=== PATIENT | female | born 1965 | race African-American/Black ===

== ENCOUNTER → 2017-06-30 | Outpatient (CLI) | payer OTHER ==
[~2017-06-30] MED LIST: ADIPEX-P37.5 MG PO; AMITRIPTYLINE H25 M2 PO; ASPIR 8181 MG PO; CYMBALTA60 MG PO; FIORINAL WITH1 EACH PO; FLEXERIL PO; HORMONE CREAM; HYDROXYZINE HCL25 M1 PO; LINZESS290 MCG PO; LIORESAL 10 MG10 MG PO; LYRICA 50 MG50 MG PO; NABUMETONE 750750 M1 PO; NORCO 10-325 T1 EACH PO; TOPAMAX 100 MG100 MG PO; TRAMADOL 50 MG50 MG PO; TRAZODONE HCL50 MG PO; ULTRAM 50MG TAB50 MG PO; VIT D; VOLTAREN GEL 1100 G2 TOP; WELLBUTRIN SR150 MG PO; WELLBUTRIN XL300 MG PO; ZANAFLEX4 MG PO
--- NOTE | 2017-07-20 08:31 | PAINCON ---
[address] [address] PAIN MANAGEMENT CONSULTATION Name: TORRIE MOY Room: [facility] Jose.#: [id number] Admission: 06/30/17 Attend Phys: Bernice oMy MD Discharge: Date of : 63 Report #: [id number] THIS REPORT FOR: //name// CC: Armin Moy DATE OF SERVICE: 06/30/2017 FOLLOWUP COMPLAINT: "My left knee swell up and I had to go to the Emergency Room. FOLLOWUP HISTORY: The patient is a 52-year-old female who has been followed in the pain clinic because of chronic low back pain. She suffers from lumbar radiculopathy. She has had a knee replacement on the left side. Things have been going reasonably well since that time. She noticed since we saw her last some swelling in her left knee. It became quite problematic with pain radiating down into her leg. Continues to experience some shooting pain. Notes some cramping and spasms as well. These have been somewhat problematic and keeping her awake at night. States that she continues to stretch her leg to increase its range of motion. She has been told by her physician that they may need to go in the future if it continues to be problematic in about 6 weeks and may be stretched to increase its range of motion. She feels that the infection has subsided. Overall, she is able to engage in more activities with less pain. She is still concerned about its lack of range of motion. There is no breakdown and the scar is healing well. ALLERGIES: No known drug allergies. MEDICATIONS: Wellbutrin XL 300 mg daily, Cymbalta 60 mg b.i.d., [place] 10/325 one p.o. t.i.d. 2 tablets, hydroxyzine 25 mg t.i.d., Linzess 290 mcg, Relafen 750 mg b.i.d., Lyrica 50 mg b.i.d., Zanaflex 4 mg b.i.d., Topamax 100 mg b.i.d., Desyrel 50 mg at bedtime, vitamin D 4 times weekly. PHYSICAL EXAMINATION: VITAL SIGNS: Blood pressure 124/59, heart rate 115, respiratory rate 16, room air saturation 96%, temperature 98.5, height 5 feet 5 inches, weight 245 pounds, BMI is 40. HEENT: Eyes are not icteric. Ears are unremarkable. Buccal membrane moist. The patient states that she is not having any significant sinus problems at this juncture. Flu has been much more problematic at this juncture. NECK: Without adenopathy. There are no bruits. Good range of motion. HEART: Regular rate and rhythm, normal S1, S2. LUNGS: Clear. ABDOMEN: Nontender. EXTREMITIES: Left leg shows a well healing scar from about 4 [place] [address] PAIN MANAGEMENT CONSULTATION Name: TORRIE MOY Room: [facility]#: [id number] Admission: 06/30/17 Attend Phys: Bernice Moy MD Discharge: Date of : 63 Report #: [id number] patella to 4 inches above the patella. It is slightly warm to touch. The patient complains of some shooting pain and burning sensation. Range of motion is limited to about 90 degrees while sitting in the chair for flexion. Continues to walk with a somewhat antalgic gait. IMPRESSION: 1. Left total knee replacement - infection noted and treated. Continue with physical therapy exercises to increase her range of motion. Notes some limitation in the flexion to about 90 degrees. 2. Chronic lumbar radicular pain status post failed back syndrome, history of prior surgeries. Finds that use of complex medical regimen is helpful. 3. Fibromyalgia. RECOMMENDATIONS: 1. We discussed treatment options with the patient. At this juncture, we will continue with her opioid medications of hydrocodone 10 mg one p.o. t.i.d. We would also recommend that she continue increase in the range of motion at rest with flexion on her knee to continue to stretch it and increase its range of motion. Continue physical therapy. 2. The patient has shooting pain and burning pain radiating down into her left leg. She is on trazodone as provided by her healthcare professional. We will have her hold on the trazodone for a trial of Elavil 25 mg at bedtime for a couple of days and then she will increase it as she is able to tolerate it. Hopefully, this medication will be more efficacious in decreasing the shooting pain, burning pain and discomfort that continues to plaque the patient and causes her to wake at night. A script for this medication has been written. We would like to thank you for letting us participate in her care. We hope she continues to improve. <ELECTRONICALLY SIGNED> By: Bernice Moy MD 07/20/17 0831 [id number]. Jd Moy MD /DEMAR
== END ==
LOC: M.PC 02:00
DX: M54.16 Radiculopathy, lumbar region (principal); M79.7 Fibromyalgia; Z96.652 Presence of left artificial knee joint; Z98.890 Other specified postprocedural states

== ENCOUNTER → 2017-07-28 | Outpatient (CLI) | payer OTHER ==
--- NOTE | 2017-08-24 08:24 | PAINCON ---
[address] [address] PAIN MANAGEMENT CONSULTATION Name: TORRIE MOY Room: [facility].#: [id number] Admission: 07/28/17 Attend Phys: Bernice Moy MD Discharge: Date of : 63 Report #: [id number] THIS REPORT FOR: //name// CC: Armin Moy DATE OF SERVICE: 07/28/2017 FOLLOWUP HISTORY: The patient is a 52-year-old female who has been followed in the pain clinic because of chronic pain associated with her left knee. She also has back problems and has had continued pain since the surgery. She is experiencing failed back syndrome. She finds that her medications continue to be helpful. She feels that her left knee is improving. She continues to try to increase its range of motion. She has been following up with her orthopedic surgeon. She does have osteoarthritis of her knees and also some osteoarthritic some rheumatoid arthritis in her hands. She feels that these medications continue to be helpful. She is trying to increase her level of activity. She is keeping her medications in a guarded area. She is aware that opioid medications can cause problems with tolerance as well as addiction. She does not feel like she is having any of these problems. She would like to have her medications renewed. ALLERGIES: No known drug allergies. MEDICATIONS: Reviewed Wellbutrin 300 mg daily, Cymbalta 60 mg b.i.d., [place] 10/325 p.o. t.i.d., hydroxyzine 25 mg t.i.d., Linzess 290 mcg, Relafen 750 mg b.i.d., Lyrica 50 mg b.i.d., Zanaflex 4 mg b.i.d., Topamax 100 mg b.i.d., Desyrel 50 mg at bedtime, multivitamin. PAIN ASSESSMENT: 1. The patient does have osteoarthritis and has had surgery of her knee, has rheumatoid arthritis involving her hands, has had some problem with carpal tunnel syndrome. 2. Height 5 feet 5 inches, weight 243 pounds, BMI is 40. 3. VITAL SIGNS: Blood pressure 145/94, heart rate 100, respiratory rate 16, room air saturation is 98%, temperature 97.9. 4. Pain intensity is an 8. 5. Fall risk. The patient has not fallen. She has not fallen in the last 3 months, feels that she is stable on her feet. 6. The patient is not on any blood thinners. 7. Hypertension. The patient is not being treated for hypertension. 8. Opioid therapy. The patient has undergone a drug test today on 07/28/2017. 9. The patient's functional assessment tool, patient rates a 60/70 in regards to general activity, mood, walking, ability to engage in activities of daily living, work activities, relationships with others, [place] [address] PAIN MANAGEMENT CONSULTATION Name: TORRIE MOY Room: [facility]#: [id number] Admission: 07/28/17 Attend Phys: Bernice Moy MD Discharge: Date of : 63 Report #: [id number] The patient denies use of tobacco. Denies use of alcoholic beverages. Denies use of drugs. PHYSICAL EXAMINATION: GENERAL: The patient is a well-developed female, appears stated age, oriented x 3 with mood and speech. Affect appears appropriate. HEENT: Unremarkable. Head is atraumatic. Extraocular eye muscles intact. No nasal discharge. Hearing is good. Buccal membranes are moist. The patient has not had the flu. NECK: Without adenopathy. There are no bruits. Good range of motion. HEART: Regular rate without murmurs. Normal S1, S2. LUNGS: Clear. ABDOMEN: Nontender. EXTREMITIES: Leg shows well healing scar about 4 inches above the patella and 4 inches below on the left side. The patient does complain of some increased soreness in her right knee. She feels that this might be secondary to increased use of this one as opposed to the contralateral surgerized knee. IMPRESSION: 1. Left total knee replacement. No infection is noted. The patient appears to be working hard to increase her range of motion. Continues with physical therapy exercises. 2. Chronic low back pain with lumbar radicular symptoms status post failed back syndrome. 3. Fibromyalgia. RECOMMENDATIONS: We discussed treatment options with the patient. She will continue to work hard at increase in the range of motion in her leg. She will continue with her current medications. She will call us if she has any problems with her medications. She will continue with physical therapy activities. She will note the changes in her right knee. I think that this might be secondary to using the right knee more than the left. Hopefully, this starts to calm down. She will continue with her current medical regimen. She will call us if she has any problems. We would like to thank you for letting us participate in her care. We hope she continues to improve. <ELECTRONICALLY SIGNED> By: Bernice Moy MD 08/24/17 0824 1010 [id number]. Jd Moy MD /nt
== END ==
LOC: M.PC 01:51
DX: M54.16 Radiculopathy, lumbar region (principal); M79.7 Fibromyalgia; Z96.652 Presence of left artificial knee joint

== ENCOUNTER → 2017-08-25 | Outpatient (CLI) | payer OTHER ==
--- NOTE | 2017-08-31 14:44 | PAINCON ---
[address] [address] PAIN MANAGEMENT CONSULTATION Name: TORRIE MOY Room: [facility] Andrea.Anthony.#: [id number] Admission: 08/25/17 Attend Phys: Bernice Moy MD Discharge: Date of : 63 Report #: [id number] THIS REPORT FOR: //name// CC: Armin Moy DATE OF SERVICE: 08/25/2017 FOLLOWUP HISTORY: Here for medication renewal. FOLLOWUP COMPLAINT: The patient is a 52-year-old female who has been followed in the pain clinic. As you recall, she suffers from pain involving her left knee at this juncture. She has had a total knee replacement. She continues to work toward rehabilitating this limb. She also has some problems with lumbar radicular pain. She has had back surgery. She finds that use of her current medications, Cymbalta, hydrocodone, tizanidine and amitriptyline are beneficial. She states that she had been working pretty hard to improve her level of flexibility involving her left leg. Because of the increased pain and physical therapy she was undergoing, she took more of her pain medications earlier during the month. As a result, she ran out about a week prior to her last visit. At the last visit, she was given a drug test, which did not show hydrocodone in her system. She states that she is not diverting any of her medication. She has only been taking the medication as prescribed. Because of the increased activity and worsening of her pain, she took her medication and ran out about a week early. States that this reveals the reason for her failing to have hydrocodone in her saliva at the last visit. Overall, she feels that her level of activity continues to improve. She is still having some pain and discomfort because of the cold temperatures with walking, sitting, standing as well as lifting and bending. Feels that stretching and rest are helpful in controlling the pain as well. She also has a history of migraines and found that they have been more frequent at this since we saw her last. With this course, her pain overall is a 7/10. ALLERGIES: No known drug allergies. MEDICATIONS: Review of current medication include Wellbutrin 300 mg daily, Cymbalta 60 mg b.i.d., [place] 10/325 p.o. t.i.d., hydroxyzine 25 mg p.o. t.i.d., Linzess 290 mcg, Relafen 750 mg b.i.d., Lyrica 50 mg b.i.d., Zanaflex 4 mg b.i.d., Topamax 100 mg b.i.d., Desyrel 50 mg at bedtime, multivitamins. PAIN ASSESSMENT: 1. The patient has osteoarthritis and has had surgery on her knee as well as some rheumatoid arthritis involving her hands. She has had problems with carpal tunnel syndrome. 2. Height 5 feet 5 inches, weight 252 pounds, BMI is 42. [place] [address] PAIN MANAGEMENT CONSULTATION Name: TORRIE MOY Room: [facility]#: [id number] Admission: 08/25/17 Attend Phys: Bernice Moy MD Discharge: Date of : 63 Report #: [id number] 3. VITAL SIGNS: Blood pressure is 93/67, heart rate is 104, respiratory rate 16, room air saturation 99, temperature 97.7. 4. Pain intensity rated as 7/10. 5. Fall risk. The patient has not fallen since we saw her last, and has not fallen in the last 3 months. 6. The patient is not on blood thinners. 7. Hypertension. The patient is not being treated for hypertension. 8. Opioid therapy. The patient has undergone a drug test. She states that she took her medications more at the beginning of last month as a result, she ran out a week in advance. This would be the reason for lack of hydrocodone and her drug test. 9. Functional assessment tool: The patient rates 60/70 in regards to general activity, mood, walking, ability to engage in activities of daily living, work activities, relationships with others, sleep and enjoyment of life. 10. The patient denies use of tobacco. The patient denies alcoholic beverages. The patient denies use of drugs and illicit drugs. PHYSICAL EXAMINATION: GENERAL: The patient is a well-developed female. She appears her stated age. She is alert and oriented x 3. Her speech is smooth. Affect appears appropriate. HEENT: Unremarkable. Head is atraumatic. Extraocular muscles intact. No nasal discharge or complaint. Hearing is normal. Buccal membranes are moist, the patient has not had a flu. NECK: Without adenopathy, there are no bruits, good range of motion. HEART: Regular rate without murmurs. Normal S1, S2. LUNGS: Clear to auscultation. ABDOMEN: Nontender. EXTREMITIES: Left leg shows some healing of the scar about 4 inches above the patella and 4 inches below on the left. The patient complains of some warmth in this area. She is wearing a compression stocking at this juncture. Notes some increased swelling and some increased soreness with range of motion in her left knee. IMPRESSION: 1. Left total knee replacement. 2. The patient continues to work hard on increasing range of motion in physical therapy. Used her hydrocodone medication in the first 3 weeks after last visit. 3. Chronic low back pain with lumbar radicular symptoms status post failed back syndrome. 4. Fibromyalgia. RECOMMENDATIONS: We discussed treatment options with the patient. We explained to her the need to take her medications as prescribed. Again, it could be misconstrue that her medications might be diverted if she does not have this in her system. She states that she will take her medications [place] [address] PAIN MANAGEMENT CONSULTATION Name: TORRIE MOY [facility] [id number] Admission: 08/25/17 Attend Phys: Bernice Moy MD Discharge: Date of : 63 Report #: [id number] was not aware that this would be deemed problematic if she took her medications earlier to help increase her range of motion. She continues with physical therapy. She will continue to monitor her left knee. She notes that there is some slight swelling there. Feels that the compression garment is helpful. She will call us if she has any concerns. We will rewrite her medications for amitriptyline, Cymbalta, tizanidine, and hydrocodone. We would like to thank you for letting us participate in her care. We hope she continues to improve. <ELECTRONICALLY SIGNED> By: Bernice Moy MD 08/31/17 1444 [id number]. Jd Moy MD /[facility]
== END ==
LOC: M.PC 01:33
DX: M54.16 Radiculopathy, lumbar region (principal); G89.29 Other chronic pain; Z96.652 Presence of left artificial knee joint

== ENCOUNTER → 2017-09-22 | Outpatient (CLI) | payer OTHER ==
--- NOTE | 2017-10-11 08:16 | PAINCON ---
[address] [address] PAIN MANAGEMENT CONSULTATION Name: TORRIE MOY Room: [facility] Jose.#: [id number] Admission: 09/22/17 Attend Phys: Bernice Moy MD Discharge: Date of : 63 Report #: [id number] THIS REPORT FOR: //name// CC: Armin Moy DATE OF SERVICE: 10/04/2017 FOLLOWUP COMPLAINT: Things are going relatively well. FOLLOWUP HISTORY: The patient is a 52-year-old black female who has been followed in the pain clinic. As you recall, she has a history of left knee replacement. She also has history of failed back syndrome with chronic lumbar radicular pain. She has been treated with opioid medications. She finds that her current medications, use of hydrocodone, tizanidine, Elavil and Cymbalta are helpful. She rates her pain as a 7-8 today. The weather has changed and she has noted some worsening in pain and discomfort. Also, has some pain and discomfort in the low back area. She notes that activities such as walking, sitting, and standing, climbing stairs, lifting and bending are problematic. Pain improves with use of her medication, rest as well as with stretching. She has had no complication from her medications in the last month. She finds that overall things are going reasonably well and would like to continue their use. ALLERGIES: No known drug allergies. MEDICATIONS: Wellbutrin 300 mg daily, Cymbalta 60 mg b.i.d., [place] 10/325 one p.o. t.i.d., hydroxyzine 25 mg p.o. t.i.d., Linzess 290 mg, Relafen 750 mg b.i.d., Lyrica 50 mg b.i.d., Zanaflex 4 mg b.i.d., Topamax 100 mg b.i.d., Desyrel 50 mg at bedtime, multivitamins. PAIN ASSESSMENT TOOL; 1. The patient does have osteoarthritis, has had surgery on her knee, on the left side as well with rheumatoid arthritis involving her hands. Does have some problems with carpal tunnel syndrome. 2. Height 5 feet 5 inches, weight 261 pounds, BMI is 42. 3. Vital signs: Blood pressure is 139/80, heart rate 102, respiratory rate 16, room air saturation 98%, temperature 98.3. 4. Pain intensity judged to be 7-8/10. 5. Fall risk. The patient has not fallen in the last 3 months. 6. Blood thinner. The patient is not on a blood thinner. 7. Hypertension. The patient is not being treated for hypertension. 8. Opioid therapy. The patient is receiving opioid therapy from the pain clinic on a regular basis. 9. Functional assessment tool. The patient rates her pain as a 60-70, which shows some significant problems with activities of daily living secondary to [facility] [address] [place] [address] PAIN MANAGEMENT CONSULTATION Name: TORRIE MOY Room: [facility] Linda#: [id number] Admission: 09/22/17 Attend Phys: Bernice Moy MD Discharge: Date of : 63 Report #: [id number] pain. 10. The patient denies tobacco use. 11. The patient denies use of illicit drugs. 12. The patient denies use of alcoholic beverages. PHYSICAL EXAMINATION: GENERAL: The patient is a well-developed black female. She appears her stated age. She is alert and oriented x 3. Her speech is smooth. Affect appears appropriate. HEAD, EYES, EARS, NOSE, AND THROAT: Unremarkable. Head is atraumatic. Extraocular eye muscles intact. Nasal mucosa moist. Hearing within normal limits. Sclerae nonicteric. NECK: Without adenopathy or bruits with good range of motion. HEART: Regular rate without murmur with normal S1, S2. LUNGS: Clear to auscultation. ABDOMEN: Nontender. EXTREMITIES: Left leg shows continued healing of the scar at approximately 4 inches above the patella and below the patella on the left. The patient does have some soreness in this area. No evidence of infections. Reasonably good range of motion. IMPRESSION: 1. Left total knee replacement. 2. Continue lumbar radicular pain status post failed back syndrome. 3. Fibromyalgia. RECOMMENDATIONS: We discussed treatment options with the patient. We will continue with her current medications. A script for her medications has been written. Possible complications of opioid use again were reviewed. They include tolerance as well as dependence. The patient is aware of this. She continues to take her medication as prescribed. She feels that she is able to participate in activities of daily living, much better with use of these medications than without them. Keeps her medications in a guarded area. We would like to thank you for letting us to participate in her care. We hope she continues to improve. <ELECTRONICALLY SIGNED> By: Bernice Moy MD 10/11/17 0816 [id number]. Jd Moy MD /[facility]
== END ==
LOC: M.PC 01:56
DX: M54.5 Low back pain (principal); M79.7 Fibromyalgia; Z96.652 Presence of left artificial knee joint

== ENCOUNTER → 2017-10-20 | Outpatient (CLI) | payer OTHER ==
--- NOTE | 2017-10-28 09:09 | PAINCON ---
[address] [address] PAIN MANAGEMENT CONSULTATION Name: TORRIE MOY [facility] [id number] Admission: 10/20/17 Attend Phys: Bernice Moy MD Discharge: Date of : 63 Report #: [id number] THIS REPORT FOR: //name// CC: Armin Moy DATE OF SERVICE: 10/20/2017 CHIEF COMPLAINT: Chronic low back pain and knee pain. FOLLOWUP HISTORY: The patient is a 52-year-old black female, who has been followed in the pain clinic because of chronic pain involving her low back, as well as her left knee. 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 She continues to have chronic pain as a result of this with some radicular component down into her leg. She has had a knee replacement on the left. Overall, things are going reasonably well. She does have some waxing and waning of pain. When the weather changes, she has noticed worsening of her pain and discomfort. Today, weather has been changing. There has been threats of tornadic activity. She has noted some worsening of pain and discomfort in her left knee. Overall, things are going reasonably well. Notes that she is somewhat limited in her ability to stand, climbs stairs, lift, bend, and do other activities of daily living. She notes that the medications continue to be helpful. She continues to work for stretching and improving her range of motion. She remains active. She states that she keeps her medications in a well-controlled environment. She has some young children that stay with her. Feels that her medications continue to be beneficial and would like to continue their use. She is aware of the conversations in the media regarding use of opioid medications and their side effects, which could be addiction as well as problems with opioids with decreasing efficacy secondary to development of tolerance. She would like to have her medications renewed. ALLERGIES: No known drug allergies. MEDICATIONS: Wellbutrin 300 mg daily, Cymbalta 60 mg b.i.d., [place] 10/325 one p.o. t.i.d., hydroxyzine 25 mg p.o. t.i.d., Linzess 290 mg, Relafen 750 mg b.i.d., Lyrica 50 mg b.i.d., Zanaflex 4 mg b.i.d., Topamax 100 mg b.i.d., Desyrel 50 mg at bedtime, and multivitamins. PAIN ASSESSMENT TOOL: 1. The patient does have history of osteoarthritis and has had left knee replacement and some problems with her contralateral knee. Has had carpal tunnel syndrome. 2. Height 5 feet 5 inches, weight 263 pounds, BMI 42. 3. Vital Signs: Blood pressure 143/77, heart rate 84, respiratory rate 16, room air saturation 97%, temperature 98.4. [place] [address] PAIN MANAGEMENT CONSULTATION Name: TORRIE MOY [facility] [id number] Admission: 10/20/17 Attend Phys: Bernice Moy MD Discharge: Date of : 63 Report #: [id number] 4. Pain intensity scale, judged to be 7/10 at this juncture. 5. Fall risk: The patient has not fallen in the last 3 months. 6. Blood thinner: The patient is not on the blood thinner. 7. Hypertension: The patient is not being treated for hypertension. 8. Opioid therapy: The patient is receiving opioid therapy for chronic pain through her pain clinic and gets her medication from one source. 9. Functional assessment tool: The patient rates her pain 60/70, which includes significant problems with activities of daily living secondary to the pain. 10. The patient denies use of tobacco use. 11. The patient denies illicit drug use. 12. The patient denies use of alcoholic beverages. PHYSICAL EXAMINATION: GENERAL: The patient is a well-developed black female. She appears her stated age. She is alert and oriented x 3. Her speech is smooth. Her appearance is appropriate. HEENT: Normocephalic, atraumatic. Extraocular eye muscles intact. Sclerae nonicteric. Hearing is within normal limits. Mucous membranes are moist. Neck with good range of motion. No JVD or bruits. HEART: Regular rate without murmur. Normal S1, S2. LUNGS: Clear to auscultation without rhonchi or rales. ABDOMEN: Protuberant. EXTREMITIES: Upper extremity strength 5/5 for the major muscle groups with normal sensitivity. Lower extremity, the patient has some pain and discomfort in the left patellar area. There is no evidence of infection. Well healed scar. Some soreness in this area. Improving range of motion. IMPRESSION: 1. Left total knee replacement. 2. Continued lumbar radicular pain secondary to failed back syndrome. 3. Fibromyalgia. RECOMMENDATIONS: We discussed treatment options with the patient. At this juncture, we will continue with her current medications. She feels that the medications are helpful. She states that she is keeping her medications in a controlled environment. Has no problems with mentation. Continues to increase her level of activity as tolerated. We will keep her medications in a guarded area given that she has some young children/grandchildren in her home. We would like to thank you for letting us participate in her care. We hope she continues to improve. <ELECTRONICALLY SIGNED> By: Bernice Moy MD 10/28/17 0909 1246 [id number]. Jd Moy MD /PMT
== END ==
LOC: M.PC 02:26
DX: M54.16 Radiculopathy, lumbar region (principal); M79.7 Fibromyalgia; Z96.652 Presence of left artificial knee joint

== ENCOUNTER → 2017-11-17 | Outpatient (CLI) | payer OTHER ==
--- NOTE | 2017-11-30 13:59 | PAINCON ---
[address] [address] PAIN MANAGEMENT CONSULTATION Name: TORRIE MOY Room: [facility] GarciaKevin#: [id number] Admission: 11/17/17 Attend Phys: Bernice Moy MD Discharge: Date of : 63 Report #: [id number] THIS REPORT FOR: //name// CC: Armin Moy DATE OF SERVICE: 11/17/2017 FOLLOWUP COMPLAINT: Here for medication renewal. FOLLOWUP HISTORY: The patient is a 52-year-old black female who has been followed in the pain clinic because of chronic pain involving her low back. She has had back surgery and continues to suffer from failed back syndrome. Has had knee problems. Has had her left knee replaced. She feels that her medications are helpful. They enable her to engage in activities of daily living. She finds that she would be much less active without them. She feels that they are working well. She is not having any mental difficulties and has a clear sensorium with their use. No bowel or bladder dysfunction. Overall, things are going reasonably well and she would like to continue her medications. She went on vacation and found the medications were efficacious. Notes that the pain still exists when standing, bending, sitting, walking, changes in activities going from a sitting to a standing as well as some bending position. Left knee continues to heal well. She continues to range its motion. Keeps her medications in a confined area given that she has her granddaughter and young children around. She has returned for renewal of her medications. ALLERGIES: No known drug allergies. MEDICATIONS: Wellbutrin 300 mg daily, Cymbalta 60 mg b.i.d., [place] 10/325 one p.o. t.i.d., hydroxyzine 25 mg p.o. t.i.d., Linzess 290 mg, Relafen 750 mg b.i.d., Lyrica 50 mg b.i.d., Zanaflex 4 mg b.i.d., Topamax 100 mg b.i.d., Desyrel 50 mg at bedtime, and multivitamins. PAIN CLINIC ASSESSMENT: 1. The patient does have osteoarthritis in her left knee and has had some carpal tunnel problems as well. 2. Height 5 feet 5 inches, weight 268 pounds, BMI is 44. 3. VITAL SIGNS: Blood pressure 153/93, heart rate 86, respiratory rate 16, room air saturation 96%, and temperature 98.3. 4. Pain score 8.5/10. 5. Fall risk. The patient has not fallen in the last 3 months. 6. Blood thinner. The patient is not on a blood thinning medication. 7. Hypertension. The patient is not being treated for hypertension. 8. Opioid therapy. The patient is receiving opioid therapy from the pain clinic and gets it from one source. 9. Functional tool assessment. The patient rates her pain as a 60/70, which [facility] [address] [place] [address] PAIN MANAGEMENT CONSULTATION Name: TORRIE MOY [facility] [id number] Admission: 11/17/17 Attend Phys: Bernice Moy MD Discharge: Date of : 63 Report #: [id number] indicates significant problems with activities of daily living secondary to the pain. 10. Tobacco: The patient denies use of tobacco. 11. Illicit drugs. The patient denies use of illicit drugs. 12. Alcohol: The patient denies use of alcoholic beverages. PHYSICAL EXAMINATION: GENERAL: The patient is a well-developed, well-nourished black female. Slightly overweight. She appears her stated age. She is alert and oriented x 3. Her speech is smooth/fluent/lucid. Her appearance is appropriate. HEENT: Normocephalic, atraumatic. Extraocular eye muscles are intact. Sclerae nonicteric. Hearing is within normal limits. Mucous membranes are moist. NECK: With good range of motion without JVD or bruits. HEART: Regular rate without murmur. Normal S1, S2. LUNGS: Clear to auscultation without rhonchi or rales. ABDOMEN: Protuberant. EXTREMITIES: No sensory changes in the upper extremity, upper group and judged to be 5/5. Lower extremity, the patient continues to have some pain and discomfort in the left patellar area. It is healing well. No evidence of infection. The patient does have some pain and discomfort in the lower portion of her back down into the lumbar region secondary to failed back syndrome. IMPRESSION: 1. Left knee replacement, continues to improve. 2. Lumbar radicular pain secondary to failed back syndrome. 3. Fibromyalgia. RECOMMENDATIONS: We discussed treatment options with the patient. Risks and benefits of an epidural steroid injection were again reviewed. Possible complication of the procedure were discussed. The patient elects to continue with her medications. Her is present. States that she is having problems with his back and may consider being seen in the pain clinic as well. A script for her medications has been provided, which include tizanidine 4 mg b.i.d., hydrocodone 10/325 one p.o. t.i.d., pregabalin/Lyrica 100 mg b.i.d. She will follow up in the future as needed. <ELECTRONICALLY SIGNED> By: Bernice Moy MD 11/30/17 1359 [id number] [id number]. Jd Moy MD /nt
== END ==
LOC: M.PC 00:51
DX: M54.5 Low back pain (principal); G89.29 Other chronic pain; M79.7 Fibromyalgia; Z96.652 Presence of left artificial knee joint

== ENCOUNTER → 2017-12-15 | Outpatient (CLI) | payer OTHER ==
[~2017-12-15] MED LIST changes: +SAVELLA50 MG PO
--- NOTE | 2017-12-22 08:42 | PAINCON ---
[address] [address] PAIN MANAGEMENT CONSULTATION Name: TORRIE MOY Room: [facility] Jose.#: [id number] Admission: 12/15/17 Attend Phys: Bernice Moy MD Discharge: Date of : 63 Report #: [id number] THIS REPORT FOR: //name// CC: Armin Moy DATE OF SERVICE: 12/15/2017 FOLLOWUP COMPLAINT: Continued bilateral knee pain as well as some low back pain. FOLLOWUP HISTORY: The patient is a 52-year-old female who has been followed in the Pain Clinic because of chronic pain. As you recall, she has chronic back pain and suffered from failed back syndrome. She also has pain and discomfort involving her knees. She has had the left knee replaced. She has noted some increased soreness in the right knee. She recently had a procedure in the dentist's office. Two teeth were removed. The patient developed "a dry socket." She notes that the pain was significantly intense. She was given 7 hydrocodone 5/325 by her surgeon. Overall, she feels that this has been "a bad week." Rates her pain as a 10/10. Has had difficulty getting in and out of bed this week. Notes worsening of her pain with activities. Notes change in the temperature which has been about 100, walking, sitting, standing, changing positions, lifting and bending have been problematic. ALLERGIES: No known drug allergies. CURRENT MEDICATIONS: Wellbutrin 300 mg daily, Cymbalta 60 mg b.i.d., [place] 10 mg 1 p.o. t.i.d., hydroxyzine 25 mg p.o. t.i.d., Linzess 290 mg, Relafen 750 mg b.i.d., Lyrica 50 mg b.i.d., Zanaflex 4 mg b.i.d., Topamax 100 mg b.i.d., Desyrel 50 mg at bedtime, and multivitamins. PAIN CLINIC ASSESSMENT: 1. The patient does have osteoarthritis involving her left knee. Has some carpal tunnel problems, has had back surgery. 2. Vital signs: Height 5 feet 5 inches, weight 255 pounds, BMI is 44. Blood pressure 148/100, heart rate 113, respiratory rate 18, room air saturation 97%, temperature 98.5. 3. Pain score 10/10. 4. Fall risk. The patient has not fallen in the last 3 months. 5. Blood thinner. The patient is not on a blood thinning medication. 6. Hypertension. The patient is not being treated for hypertension. 7. Opioid therapy. The patient is receiving opioid therapy from 1 source of functional assessment tool. The patient rates her pain as a 60 out of 70, which shows significant problems with activities of daily living because of the pain. 8. Tobacco: The patient denies use of tobacco. 9. Illicit drug use. The patient denies [place] [address] PAIN MANAGEMENT CONSULTATION Name: TORRIE MOY Room: [facility] Linda#: [id number] Admission: 12/15/17 Attend Phys: Bernice Moy MD Discharge: Date of : 63 Report #: [id number] 10. Alcohol: The patient denies use of alcoholic beverages. PHYSICAL EXAMINATION: GENERAL: The patient is a well-developed black female. She appears her stated age. She is slightly overweight. She appears to be in some increased pain as opposed to other previous visits. She is walking very slow. Her is with her. HEENT: Normocephalic, atraumatic. Extraocular eye muscles intact. Sclerae nonicteric. Hearing is within normal limits. Mucous membranes are moist. NECK: With good range of motion without JVD or bruits. HEART: Regular rate without murmurs. S1, S2. LUNGS: Clear to auscultation without rhonchi or rales. ABDOMEN: Protuberant. EXTREMITIES: Without significant scoliosis, kyphosis or lordosis. Upper extremity muscle strength is judged to be 5/5. Lower extremity muscle strength is judged to be 4+ in the lower extremities. The patient complains of pain and discomfort in her right knee. There is slight swelling. Light palpation in the area of the patella is sore. There is no significant redness. Difficult to assess given the patient's skin complexion. The left knee is well healed. It is relatively cool to touch. Right knee is relatively cool to touch. IMPRESSION: 1. Left knee replacement continues to improve. 2. Right knee pain and discomfort with some perception of swelling and increased discomfort to touch. It does not seem to be infected, but it is sore. 3. History of lumbar radicular pain secondary to failed back syndrome. 4. Fibromyalgia. RECOMMENDATIONS: We discussed treatment options with the patient. We will continue with her current medical regimen. The patient has been given a script for Voltaren to rub over the affected knee. Hopefully, she will find that this is helpful and helps to calm down the pain and discomfort. She will continue with her current medications of hydrocodone. She will continue with Zanaflex, Lyrica and amitriptyline. We would like to thank you for letting us participate in her care. A script for the above-mentioned medications were renewed. <ELECTRONICALLY SIGNED> By: Bernice Moy MD 12/22/17 0842 1501 [id number]. Jd Moy MD /nt
== END ==
LOC: M.PC 03:26
DX: M25.561 Pain in right knee (principal); M79.7 Fibromyalgia; G89.4 Chronic pain syndrome; Z96.652 Presence of left artificial knee joint

== ENCOUNTER → 2018-01-26 | Outpatient (CLI) | payer OTHER ==
--- NOTE | 2018-02-03 08:37 | PAINCON ---
[address] [address] PAIN MANAGEMENT CONSULTATION Name: TORRIE MOY Room: [facility] AndreaAnthony.#: [id number] Admission: 01/26/18 Attend Phys: Bernice Moy MD Discharge: Date of : 63 Report #: [id number] THIS REPORT FOR: //name// CC: Armin Moy DATE OF SERVICE: 01/26/2018 FOLLOWUP COMPLAINT: Here for medications. Still having pain in both knees and in the low back. FOLLOWUP HISTORY: The patient is a 52-year-old female who has been followed in the pain clinic. As you recall, she has significant problems with her back. She suffers from failed back syndrome. She has been treated with complex medical regimen using opioid medication because of chronic pain. Also, she is having some pain and discomfort with her knees. She has had a left knee replacement. She has noted some increased soreness in the right knee. She generally has some global pain today. She is experiencing some increased swelling in her knees. Notes that her fibromyalgia pain is problematic. She is being seen by her turret punch press operator next week. She notes that there is some swelling down in her ankle and the knee on the right side. She is walking with a cane and has some pain, which she rates as a 10/10 today. Feels that her medications are helpful in spite of all of this discomfort. We would like to continue them. Notes that pain is worse with change in temperature, increase activity, walking, sitting, standing, going from a sitting to a standing, bending and lifting. She has had no complications with her medications. Keeps her medications in a guarded area. ALLERGIES: No known drug allergies. MEDICATIONS: Wellbutrin 300 mg daily, Cymbalta 60 mg b.i.d., [place] 10 mg 1 p.o. t.i.d., hydroxyzine 25 mg t.i.d., Linzess 290 mg, Relafen 750 mg b.i.d., Lyrica 50 mg b.i.d., Zanaflex 4 mg b.i.d., Topamax 100 mg b.i.d., Desyrel 50 mg at bedtime and multiple vitamins. PAIN CLINIC ASSESSMENT: 1. The patient does have osteoarthritis involving her knees. Has had some problems with her hands with carpal tunnel as well as had back surgery. 2. Vital Signs: Blood pressure is 155/93, heart rate is 88, respiratory rate 18, room air saturation 96%, temperature 98.2. Pain score 10/10. 3. Fall risk. The patient has not fallen in the last 3 months. She does walk with a cane. 4. Blood thinner. The patient is not on a blood thinning medication. 5. Hypertension. The patient has not been treated for hypertension. 6. Opioid therapy. The patient is receiving opioid [place] [address] PAIN MANAGEMENT CONSULTATION Name: TORRIE MOY Room: [facility]#: [id number] Admission: 01/26/18 Attend Phys: Bernice Moy MD Discharge: Date of : 63 Report #: [id number] clinic. 7. Tobacco: The patient denies use of tobacco. 8. Illicit drugs. The patient denies use of illicit drugs. 9. Alcohol: The patient denies use of alcoholic beverages. PHYSICAL EXAMINATION: GENERAL: The patient is a well-developed black female. She appears her stated age. She is alert and oriented x 3. Does have some increased pain and complains in the area of her knees and right ankle. Continues to move slowly. Her and her granddaughter are with her. HEENT: Normocephalic, atraumatic. Extraocular eye muscles intact. Sclerae nonicteric. Hearing is within normal limits. Mucous membranes are moist. NECK: Good range of motion without JVD or bruits. HEART: Regular rate without murmurs. S1, S2. LUNGS: Clear to auscultation without rhonchi or rales. ABDOMEN: Protuberant, nontender. EXTREMITIES: Without significant scoliosis, kyphosis, or lordosis. Upper extremity muscle strength is judged to be 5/5 with symmetry without sensory changes. Low back area, well-healed scar in the low back area. Has pain and discomfort, which is radiating down into her legs. She has pain and discomfort in the left knee as well as in the right knee, right more problematic with swelling down into the ankle. Left knee is well healed without evidence of infection. IMPRESSION: 1. Left knee replacement, continues to improve. 2. Right knee discomfort with some swelling as well as some increased discomfort down into the ankle on the affected side. 3. History of lumbar radicular pain, status post failed back syndrome. 4. Fibromyalgia. RECOMMENDATIONS: We discussed treatment options with the patient. We will continue with her current medications. She states that she is following up with her turret punch press operator. Hopefully, she will notice some improvement in the swelling in her right knee as well as in her ankle. She feels that her medications are helpful. We will continue with their use. We have discussed the problems with opioid medications, which could include addiction as well as decreased efficacy secondary to intolerance. Overall, she feels that the medications are helpful, we will rewrite her medications for hydrocodone, Voltaren gel, amitriptyline and Lyrica. These medications have been rewritten and the patient will follow up in the near future. <ELECTRONICALLY SIGNED> By: Bernice Moy MD 02/03/18 0837 1222 1530N. Jd Moy MD /nt
== END ==
LOC: M.PC 03:26
DX: M54.5 Low back pain (principal); M25.561 Pain in right knee; M25.562 Pain in left knee; M79.7 Fibromyalgia; Z79.899 Other long term (current) drug therapy; Z96.652 Presence of left artificial knee joint

== ENCOUNTER → 2018-02-23 | Outpatient (CLI) | payer OTHER ==
--- NOTE | 2018-02-24 17:38 | PAINCON ---
[address] [address] PAIN MANAGEMENT CONSULTATION Name: TORRIE MOY Room: [facility] Jose.#: [id number] Admission: 02/23/18 Attend Phys: Bernice Moy MD Discharge: Date of : 63 Report #: [id number] THIS REPORT FOR: //name// CC: Armin Moy DATE OF SERVICE: 02/23/2018 CHIEF COMPLAINT: Right knee pain, continued left knee pain, back pain. HISTORY OF PRESENT ILLNESS: The patient is a 52-year-old black female. She has been followed in the pain clinic in the past because of chronic pain involving her back. 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 She also has pain and discomfort as a result of knee pain. As you recall, she has had the left knee replaced. She still is doing reasonably well, but still has some problems with the left knee. She is having more problems with her right knee. Has recently undergone an injection in the right knee. Still finds that things are still painful. Has been walking and continues to walk with a cane because of the pain and discomfort associated with the osteoarthritic changes in her knees. She feels that things are going reasonably well. Rates her pain as a 7-8/10. Finds her hydrocodone is beneficial and has returned today for renewal of her medications. Activities of daily living such as walking, walking stairs, sitting, standing, lifting, bending are still quite problematic. She is becoming less mobile as time has progressed. ALLERGIES: No known drug allergies. CURRENT MEDICATIONS: Wellbutrin 300 mg daily, Cymbalta 60 mg b.i.d., [place] 10 mg t.i.d., hydroxyzine 25 mg t.i.d., Linzess 290 mcg, Relafen 750 mg b.i.d., Lyrica 50 mg b.i.d., Zanaflex 4 mg, Topamax 100 mg b.i.d., Desyrel 50 mg at bedtime, and multivitamins. PAIN CLINIC ASSESSMENT: 1. The patient does have osteoarthritis involving her left knee. Has some signs in the right knee. She has had back surgery. 2. Height 5 feet 5 inches, weight 279 pounds, BMI is 46.9. 3. Vital signs: Blood pressure 149/88, heart rate is 102, respiratory rate 16, room air saturation 99%, temperature 98.3. 4. Pain intensity 7/10. 5. Fall risk. The patient has not fallen in the last 3 months. 6. Blood thinner. The patient is not on a blood thinning medication. 7. Hypertension. The patient is not being treated for hypertension. 8. Opiate therapy. The patient is receiving her medications from the pain clinic. 9. Tobacco: The patient denies use of tobacco. 10. Illicit drugs. The patient denies [place] [address] PAIN MANAGEMENT CONSULTATION Name: TORRIE MOY Room: [facility]#: [id number] Admission: 02/23/18 Attend Phys: Bernice Moy MD Discharge: Date of : 63 Report #: [id number] 11. Alcohol: The patient denies use of alcoholic beverages. PHYSICAL EXAMINATION: GENERAL: The patient is a well-developed black female, appears her stated age. She is alert and oriented x 3. Slightly overweight. Appears relax. HEENT: Normocephalic, atraumatic. Extraocular eye muscles intact. Sclerae nonicteric. Hearing is within normal limits. Mucous membranes are moist. NECK: With good range of motion without JVD or bruits. HEART: Regular rate without murmurs. S1, S2. LUNGS: Clear to auscultation without rhonchi or rales. ABDOMEN: Protuberant, nontender. EXTREMITIES: Without significant swelling in the ankles or hands. MUSCULOSKELETAL: Without scoliosis, kyphosis or lordosis. Upper muscle strength is judged to be 5/5 for the major muscle groups. Muscle strength is judged to be 4+ in the left and right lower extremities. The patient gives way secondary to the pain. Has pain and discomfort in the right knee. Has pain and discomfort in the left knee. Feels and perceives swelling on the medial aspects of her knees bilaterally. No evidence of redness or infection involving the left knee, well healed. IMPRESSION: 1. Left and right knee pain. Left knee is improving, status post arthroplasty, right knee with continued pain status post injection recently, but continues to be somewhat problematic. 2. History of lumbar radicular pain secondary to failed back syndrome. 3. Fibromyalgia. RECOMMENDATIONS: We discussed treatment options with the patient. Risks and benefits of her medications were discussed. Overall, things are going reasonably well. She continues to ambulate as much as possible. Feels that her medications are helpful. She is not having any complications from the medications. We had conversations regarding use of opioid medications, their benefits and risks. Risks include possibility of addiction as well as possibility of ____ effectiveness over a period of time secondary to tolerance. Overall, she feels that things are going reasonably well. She would like to continue with her medication. Continues to walk with use of a cane. Finds that her medications enable her to stay reasonably active in her daily life. <ELECTRONICALLY SIGNED> By: Bernice Moy MD 02/24/18 1738 [id number]. Jd Moy MD /nt
== END ==
LOC: M.PC 04:38
DX: M54.16 Radiculopathy, lumbar region (principal); M25.561 Pain in right knee; M25.562 Pain in left knee; M79.7 Fibromyalgia; Z79.899 Other long term (current) drug therapy

== ENCOUNTER → 2018-03-23 | Outpatient (CLI) | payer OTHER ==
[~2018-03-23] MED LIST changes: -SAVELLA50 MG PO
--- NOTE | 2018-05-03 15:49 | PAINCON ---
[address] [address] PAIN MANAGEMENT CONSULTATION Name: TORRIE MOY Room: [facility] AndreaKevinAnthony.#: [id number] Admission: 03/23/18 Attend Phys: Bernice Moy MD Discharge: Date of : 63 Report #: [id number] THIS REPORT FOR: //name// CC: Armin Moy DATE OF SERVICE: 03/23/2018 CHIEF COMPLAINT: Knee and back pain have worsened since the weather change. FOLLOWUP HISTORY: The patient is a 52-year-old black female. She is followed in the pain clinic because of chronic pain. As you recall, she has had her knee replaced on the left side. She continues to have pain and discomfort as a result of that. She also has had back surgery and suffers from chronic pain secondary to failed back syndrome. She feels that her medications are helpful at this juncture. She has returned today for renewal of her medication. She has been having more pain in her right knee. She has undergone an injection in the knee. She has been walking with a cane. She rates her pain as an 8/10 at this juncture. She feels that her hydrocodone, tizanidine, Voltaren, and Lyrica are helpful. Notes that the pain is exacerbated with activities such as walking, sitting, standing, going from a sitting to a standing position as well as lifting and bending. She feels that her medications afford her ability to engage in activities which she would not be able to without them. Feels that the pain is about 25% improved with use of her medications. ALLERGIES: No known drug allergies. CURRENT MEDICATIONS: Wellbutrin 300 mg daily, Cymbalta 60 mg b.i.d., [place] 10 mg t.i.d., hydroxyzine 25 mg t.i.d., Linzess 290 mcg, Relafen 750 mg b.i.d., Lyrica 50 mg b.i.d., Zanaflex 4 mg, Topamax 100 mg b.i.d., Desyrel 50 mg at bedtime, and multivitamin. PAIN CLINIC ASSESSMENT/PQRS: 1. The patient does suffer from osteoarthritis involving her left knee and some problem with her right knee. She is not being treated for rheumatoid arthritis. 2. Height 5 feet 5 inches, weight 279 pounds, BMI is 46.3. 3. Vital signs, blood pressure 160/103, heart rate 99, respiratory rate 16, room air saturation 100%, temperature 98.3. Pain intensity score is 8/10. 4. Fall risk. The patient has not fallen in the last 3 months. 5. Blood thinner. The patient is not on a blood thinning medication. 6. Hypertension. The patient is not being treated for hypertension. 7. Opioid therapy. The patient receives her medications from one source, the pain clinic. 8. Tobacco: The patient denies use of tobacco. 9. Illicit drugs. The patient denies use of illicit drugs. 10. Alcohol: The patient denies [place] [address] PAIN MANAGEMENT CONSULTATION Name: TORRIE MOY Room: [facility]#: [id number] Admission: 03/23/18 Attend Phys: Bernice Moy MD Discharge: Date of : 63 Report #: [id number] PHYSICAL EXAMINATION: GENERAL: The patient is a well-developed, well-nourished black female, appears her stated age. She is alert and oriented x 3. Her affect is appropriate. Speech is fluent. HEENT: Normocephalic, atraumatic. Extraocular eye muscles intact. Sclerae nonicteric. Mucous membranes are moist. NECK: With good range of motion without JVD or bruits. HEART: Regular rate without murmurs. S1, S2 normal. LUNGS: Clear to auscultation without rhonchi or rales. ABDOMEN: Protuberant, nontender. Bowel sounds present. EXTREMITIES: Without significant swelling of the ankles or hands. The patient notes some pain and discomfort in her left knee as well as in the right knee. MUSCULOSKELETAL: Without scoliosis, kyphosis, or lordosis. Upper muscle strength is judged to be 5/5 for the major muscle groups. The patient's muscle strength is judged to be 4+ in the left and 5 in the right lower extremity. The patient gives way secondary to pain. She has pain and discomfort in the right knee. Pain and discomfort and a well-healed scar on the left side. No evidence of infection. IMPRESSION: 1. Left and right knee pain. Left knee, improving, status post arthroplasty, right knee continues to be quite painful and is undergoing injections p.r.n. 2. History of lumbar radicular pain secondary to failed back syndrome. 3. Fibromyalgia. RECOMMENDATIONS: We discussed treatment options with the patient. At this juncture, we will continue with her current medical medications. Feels that these medications are helpful. Continues to exercise her right and left knee. We have had a discussion about possible complications of decreased range of motion and knee replacements. The patient states that she continues to work hard to increase and maintain its range of motion. She is aware of the problems with opioid medications. She is aware that 72,000 people last year, as a result of drug overdoses. The patient states she keeps her medications in a guarded area. She does have young grandchildren. Keeps these medications out of their reach. She will call us if she has any problems. A script for hydrocodone 10/325, tizanidine 4 mg, Voltaren gel, Elavil, and Lyrica have been written. We would like to thank you for letting us participate in her care. We hope she continues to improve. <ELECTRONICALLY SIGNED> By: Bernice Moy MD 05/03/18 1549 1805 [id number]. Jd Moy MD /nt
== END ==
LOC: M.PC 04:49
DX: M25.561 Pain in right knee (principal); M25.562 Pain in left knee; M54.5 Low back pain; M54.16 Radiculopathy, lumbar region; M79.7 Fibromyalgia

== ENCOUNTER → 2018-04-20 | Outpatient (CLI) | payer OTHER ==
[~2018-04-20] MED LIST changes: +SAVELLA50 MG PO
--- NOTE | 2018-05-03 16:38 | PAINCON ---
[address] [address] PAIN MANAGEMENT CONSULTATION Name: TORRIE MOY [facility] [id number] Admission: 04/20/18 Attend Phys: Bernice Moy MD Discharge: Date of : 63 Report #: [id number] THIS REPORT FOR: //name// CC: Armin Moy DATE OF SERVICE: 04/20/2018 HISTORY: Pain in the knees, low back and left shoulder. HISTORY OF PRESENT ILLNESS: This is a 52-year-old female who has been followed in the pain clinic because of chronic pain. As you recall, she suffers from lumbar pain. She has failed back symptomatology. She is having some pain and discomfort involving her left shoulder at this juncture. The weather has changed. She feels that this might have something to do with it. She also has pain and discomfort in her knees. As you recall, she has had a knee replacement. She rates her pain as a 9.5-10 today. Feels that her medications continue to be helpful. Feels that the [employer] medication is beneficial as well as Voltaren gel. She uses this medication on the affected area. She has returned today with the hope of renewing her medications. She has had no new complications. No problems with the medication. Keeps her medications in a guarded area. She feels that the medications, continue to enable her to engage in activities of daily living. She had a great amount of difficulty doing without their use. Keeps her medications in a guarded area and away from her grandkids. ALLERGIES: No known drug allergies. CURRENT MEDICATIONS: Wellbutrin 300 mg, Cymbalta 60 mg b.i.d., [employer] 10 mg t.i.d., hydrochlorothiazide 25 mg t.i.d., Linzess 290 mcg, Relafen 750 mg b.i.d., Lyrica 50 mg b.i.d., Zanaflex 4 mg, Topamax 100 mg b.i.d., Desyrel 50 mg at bedtime, and multivitamins. PAIN CLINIC ASSESSMENT/PQRS: 1. The patient does suffer from osteoarthritic changes involving her knees and has had back surgery. She has not been treated for rheumatoid arthritis. 2. Height 5 feet 5 inches, weight 281 pounds, BMI is 47. 3. Vital signs: Blood pressure 129/95, heart rate 89, respiratory rate 16, room air saturation 95%, temperature 98.2. 4. Pain intensity 9.5-10. 5. Fall history: The patient has not fallen in the last 3 months. 6. Blood thinner. The patient is not on a blood thinning medication. 7. Hypertension. The patient is not being treated for hypertension. 8. Opioid therapy. The patient receives her medications from 1 source, [place] [address] PAIN MANAGEMENT CONSULTATION Name: TORRIE MOY Room: [facility]#: [id number] Admission: 04/20/18 Attend Phys: Bernice Moy MD Discharge: Date of : 63 Report #: [id number] 9. Tobacco: The patient denies use of tobacco. 10. Illicit drug use. The patient denies use of illicit drugs. 11. Alcohol: The patient denies use of alcoholic beverages. PHYSICAL EXAMINATION: GENERAL: The patient is well-developed well-nourished black female, appears her stated age. She is alert and oriented x 3. Her affect is appropriate. Speech is fluent. Her is present. HEENT: Normocephalic, atraumatic. Extraocular eye muscles intact. Sclerae nonicteric. Mucous membranes are moist. NECK: With good range of motion without JVD or bruits. HEART: Regular rate without murmurs. S1, S2. LUNGS: Clear to auscultation without rhonchi or rales. ABDOMEN: Protuberant, nontender. Bowel sounds present. EXTREMITIES: Without significant swelling in the ankles or hands. The patient does note some discomfort in her left knee. Also, has some pain in the right knee. Has some discomfort in the left shoulder and arm. MUSCULOSKELETAL: Without significant scoliosis, kyphosis, or lordosis. Lower extremity muscle strength is judged to be 5-/5 for the major muscle groups in the lower extremity. The patient has well-healed scar on the left side of her knee. IMPRESSION: 1. History of left and right knee pain. 2. Left knee, improving, status post arthroplasty. 3. Right knee continues to be painful. 4. History of lumbar radiculopathy secondary to failed back syndrome. 5. Fibromyalgia. RECOMMENDATIONS: We discussed treatment options with the patient. At this juncture, we will continue with her current medications. She feels that her medications are helpful. She does report a high pain level, but again still feels that these medications are quite helpful. She has had no complications. She keeps her medications in a guarded area. We discussed the problems with opioid medications, how the 72,000 people have in the last year as a result of using of medication overdoses. She would like to continue with her medications. Therefore, a script for Lyrica 50 mg b.i.d., hydrocodone 10 mg 1 p.o. t.i.d., amitriptyline 25 mg 2 tablets at bedtime, and Voltaren gel have been provided. The patient will take tizanidine as needed. She will call us if she has any concerns. We would like to thank you for letting us participate in her care. We hope she continues to improve. <ELECTRONICALLY SIGNED> By: Bernice Moy MD 05/03/18 1638 1609 1946N. Jd Moy MD /[facility]
== END ==
LOC: M.PC 02:50
DX: M25.561 Pain in right knee (principal); M25.562 Pain in left knee; M54.5 Low back pain; M25.512 Pain in left shoulder; M79.7 Fibromyalgia; M54.16 Radiculopathy, lumbar region

== ENCOUNTER → 2018-05-18 | Outpatient (CLI) | payer OTHER ==
--- NOTE | ~2018-05-18 | PAINCON ---
[address] [address] PAIN MANAGEMENT CONSULTATION Name: TORRIE MOY Room: [facility]ANES Jose.#: [id number] Admission: 05/18/18 Attend Phys: Bernice Moy MD Discharge: Date of : 63 Report #: [id number] THIS REPORT FOR: //name// CC: Armin Moy DATE OF SERVICE: 05/18/2018 HISTORY: The patient is a 52-year-old female who has been followed in the pain clinic because of chronic pain. Notes that she has noted some increased pain and discomfort. She has some pain in the low back, left shoulder and her knees. States that during the was at home. She walked a family member to the door. She pivoted to turn. It was felt that her right leg "gave out." She fell. She did not need medical attention. She did note some increased pain and discomfort for a couple of days. She stated that the knee simply buckled. She has a history of fibromyalgia. She was taking Lyrica. Feels that medication has not been as beneficial. She did try Savella in the past. She would like to reestablish use of Savella and see whether or not this medication is more helpful. Did not have any problems with that in the past when she was using it. Also, has found that tizanidine and her other medications, continue to be helpful. ALLERGIES: No known drug allergies. CURRENT MEDICATIONS: Wellbutrin 300 mg, Cymbalta 60 mg b.i.d., [place] 10 mg t.i.d., hydrochlorothiazide 25 mg t.i.d., Linzess 290 mcg, Relafen 750 mg b.i.d., Zanaflex 4 mg, Topamax 100 mg b.i.d., Desyrel 50 mg at bedtime, multivitamins. The patient states that she stopped taking the Lyrica over a week ago. She has had no signs of side effects. PAIN CLINIC ASSESSMENT/PQRS. 1. The patient does suffer from osteoarthritis involving her left knee. Also, has some problems with her right knee. Has had back surgery. The patient is not being treated for rheumatoid arthritis. 2. Height 5 feet 5 inches, weight 289 pounds, BMI is 43. 3. Vital signs: Blood pressure 155/98, heart rate 78, respiratory rate 16, room air saturation 98%, temperature 98.6. 4. Pain intensity 9/10. 5. Fall history. The patient fell last week. 6. Blood thinner. The patient is not on a blood thinning medication. 7. Hypertension. The patient is not being treated for hypertension. 8. Opioid therapy. The patient receives her medications from one source, the pain clinic. 9. Tobacco: The patient denies use of tobacco. 10. Illicit drug use. The patient denies use of illicit drugs. 11. Alcohol: The patient denies [place] [address] PAIN MANAGEMENT CONSULTATION Name: TORRIE MOY [facility] [id number] Admission: 05/18/18 Attend Phys: Bernice Moy MD Discharge: Date of : 63 Report #: [id number] PHYSICAL EXAMINATION: GENERAL: The patient is a well-developed black female. Her affect is appropriate. Speech is fluent. HEAD, EYES, EARS, NOSE, AND THROAT: Normocephalic, atraumatic. Extraocular eye muscles intact. Sclerae is nonicteric. The patient's is present. NECK: Without adenopathy. Good range of motion without bruits are JVD. HEART: Regular rate without murmurs. LUNGS: Clear to auscultation without rhonchi or rales. ABDOMEN: Protuberant, nontender. Bowel sounds present. EXTREMITIES: Upper extremity muscle strength involving the ankles and hands. Notes some swelling. The patient has some pain and discomfort in her left knee. Has some pain and discomfort in the right leg as well. Noted some increased pain in the shoulder after the fall. It involves her left arm as well. MUSCULOSKELETAL: Without significant scoliosis, kyphosis or lordosis. Lower extremity muscle strength is judged to be -5/5 for the major muscle groups in the lower extremity. The patient has a well-healed scar on the left knee. Has some soreness in the peripatellar areas. ASSESSMENT: 1. History of left and right knee pain. 2. Left knee, improving, status post arthroplasty. 3. Right knee continues to be painful. 4. History of lumbar radiculopathy secondary to failed back syndrome. 5. Fibromyalgia. RECOMMENDATION: The patient at this juncture, we would like to try Savella. She used this medication in the past. She was taking Lyrica. Feels that the Lyrica has not been very helpful and would like to ____ use. She stopped using the Lyrica a week ago, has had no complications. We will write for the Savella. The patient will take 50 mg tablets and increase them as tolerated. She will call us if she has any problems. She will continue to be mindful of her positioning when walking to lessen the chance of fall. We would like to thank you for letting us to participate in her care. We hope she continues to improve. By: 1200 [id number]. Jd Moy MD /PMT
== END ==
LOC: M.PC 03:46
DX: M25.561 Pain in right knee (principal); M25.562 Pain in left knee; G89.29 Other chronic pain; M54.16 Radiculopathy, lumbar region

== ENCOUNTER → 2018-06-08 | Outpatient (CLI) | payer OTHER ==
--- NOTE | ~2018-06-08 | PAINCON ---
[address] [address] PAIN MANAGEMENT CONSULTATION Name: NANDOTORRIE Room: [facility]#: [id number] Admission: 06/08/18 Attend Phys: Bernice Moy MD Discharge: Date of : 63 Report #: [id number] THIS REPORT FOR: //name// CC: Armin Moy DATE OF SERVICE: 06/08/2018 PRIMARY CARE PHYSICIAN: Armin Shah MD CHIEF COMPLAINT: Here for medication renewal. FOLLOWUP HISTORY: The patient is a 52-year-old female who has been followed in the pain clinic because of chronic pain. She has undergone back surgery in the past. Suffers from failed back syndrome. Also, has some pain and discomfort in her knees. Left and right. Has had a knee replacement on the left side. There is noting some increased swelling in her knees and notes some increased discomfort involved in activities of daily living. She has pain in the left shoulder. Finds that her medications, Savella, [place], Elavil and Voltaren Gel are beneficial. Rates her pain as an 8/10. She has returned to the pain clinic today for renewal of her medications. As you recall, she also has a history of fibromyalgia. She would like to have her medications renewed today. ALLERGIES: No known drug allergies. CURRENT MEDICATIONS: Wellbutrin 300 mg, Cymbalta 60 mg b.i.d., [place] 10 mg t.i.d., hydrochlorothiazide 25 mg t.i.d., Linzess 290 mcg, Relafen 750 mg b.i.d., Zanaflex 4 mg, Topamax 100 mg b.i.d., Desyrel 50 mg at bedtime, multivitamins. PAIN CLINIC ASSESSMENT/PQRS: 1. The patient does suffer from osteoarthritis involving her left knee. Also, has some problem with her right knee. Has problem with her back, status post back surgery and is having some discomfort in her left shoulder. 2. Height 5 feet 5 inches, weight 295 pounds, BMI is 49.2. 3. Vital signs: Blood pressure 158/93, heart rate 107, respiratory rate 16, room air saturation 99%, temperature 98.6. 4. Pain score 8/10. 5. Fall history: The patient has not fallen in the last week. 6. Blood thinner. The patient is not on a blood thinning medication. 7. Hypertension. The patient is not being treated for hypertension. 8. Opioids. The patient receives her medication from one source, the pain clinic. 9. Tobacco: The patient denies use of tobacco. 10. Illicit drug use. The patient denies use of illicit drugs. 11. Tobacco: The patient [place] [address] PAIN MANAGEMENT CONSULTATION Name: TORRIE MOY Room: [facility]#: [id number] Admission: 06/08/18 Attend Phys: Bernice Moy MD Discharge: Date of : 63 Report #: [id number] PHYSICAL EXAMINATION: GENERAL: The patient is well-developed, well-nourished black female, appears her stated age. She is alert and oriented x 3. Speech is fluent. The patient's is present. HEENT: Normocephalic, atraumatic. Extraocular eye muscles are intact. Sclerae nonicteric. Mucous membranes are moist. NECK: Without adenopathy or JVD. HEART: Regular rate without murmurs. LUNGS: Clear to auscultation without rhonchi or rales. ABDOMEN: Protuberant. Bowel sounds present, nontender. EXTREMITIES: Upper extremity muscle strength. The patient has some pain and discomfort in the left shoulder. She has some pain in the low back area. Has bilateral knee pain, left as well as the right. Complains of swelling and perception swelling in her knees. MUSCULOSKELETAL: Without significant scoliosis, kyphosis or lordosis. Upper extremity muscle strength is judged to be -5/5 for the left and -5/5 for the right upper extremity. Lower extremity, -5/5 in the lower extremity, has pain and discomfort involving the knees with some limitation in motion and movement. Some soreness in the peripatellar areas. ASSESSMENT: 1. History of left and right knee pain. 2. Left knee pain status post arthroplasty. 3. Right knee continued to be painful. 4. History of lumbar radicular pain status post failed back syndrome. 5. Fibromyalgia. 6. Left shoulder pain. RECOMMENDATIONS: We discussed treatment options with the patient. We will continue with her current medications of Lyrica, hydrocodone 10/325, amitriptyline, Voltaren gel 1% and Savella as well as tizanidine. The patient will call us if she has any concerns. We would like to thank you for letting us participate in her care. We hope she continues to improve. By: [id number]. Jd Moy MD /DEMAR
== END ==
LOC: M.PC 01:38
DX: M54.16 Radiculopathy, lumbar region (principal); G89.29 Other chronic pain; M25.561 Pain in right knee; M25.562 Pain in left knee; M79.7 Fibromyalgia; M25.512 Pain in left shoulder; Z79.899 Other long term (current) drug therapy

== ENCOUNTER → 2018-07-11 | Outpatient (CLI) | payer OTHER ==
[~2018-07-11] MED LIST changes: +MEDROLDOSEPACK PO
--- NOTE | ~2018-07-11 | PAINCON ---
[address] [address] PAIN MANAGEMENT CONSULTATION Name: TORRIE MOY [id number] Admission: 07/11/18 Attend Phys: Bernice Moy MD Discharge: Date of : 63 Report #: [id number] THIS REPORT FOR: //name// CC: Armin Moy DATE OF SERVICE: 07/11/2018 CHIEF COMPLAINT: Pain in the left shoulder and pain in the neck. HISTORY OF PRESENT ILLNESS: The patient is a 53-year-old female who has been followed in the pain clinic because of chronic pain. She is experiencing some pain, which is somewhat global at this juncture. Has pain in her left shoulder as well as some pain in the low back and down into her knees. As you recall, she has had knee surgery. She is noticing some increased pain and discomfort in the left shoulder area. She recounts having fallen. When she fell, she braced herself with her left arm. Since that time, she is experiencing some pain and some discomfort, which radiates down into her arm and has some difficulty with movement of her left arm because of extreme pain. She rates her pain today as a 9/10. She has returned today for renewal of her medications as well as options regarding the left shoulder pain, which is now becoming more and more problematic. ALLERGIES: No known drug allergies. CURRENT MEDICATIONS: Wellbutrin 300 mg, Cymbalta 60 mg b.i.d., [place] 10 mg t.i.d., hydrochlorothiazide 25 mg t.i.d., Linzess 290 mcg, Relafen 750 mg b.i.d., Zanaflex 4 mg, Topamax 100 mg b.i.d., Desyrel 50 mg at bedtime, multivitamins. PAIN CLINIC ASSESSMENT AND PQRS: 1. The patient does suffer from osteoarthritis involving her left knee. This has been replaced. Also, is having more problems with her right knee. Has some pain in her left shoulder since the fall. She has undergone back surgery. 2. Height 5 feet 5 inches, weight 296 pounds, BMI is 48.9. 3. Vital Signs: Blood pressure 151/92, heart rate 103, respiratory rate 16, room air saturation is 93%, temperature 98.8. 4. Pain intensity 9/10. 5. Fall history. The patient has not fallen since the last visit. 6. Blood thinner. The patient is not on a blood thinning medication. 7. Hypertension. The patient is not being treated for hypertension. 8. Opioids. The patient receives her medications from one source, the pain clinic. 9. Tobacco. The patient denies use of tobacco. 10. Illicit drug use. The patient [place] [address] PAIN MANAGEMENT CONSULTATION Name: NANDOTORRIE Room: [facility]#: [id number] Admission: 07/11/18 Attend Phys: Bernice Moy MD Discharge: Date of : 63 Report #: [id number] PHYSICAL EXAMINATION: GENERAL: The patient is a well-developed, obese, black female, appears her stated age. She is alert and oriented x 3. Speech is fluent. HEENT: Normocephalic, atraumatic. Extraocular eye muscles intact. Sclerae nonicteric. The patient's is present. NECK: Without adenopathy or JVD. HEART: Rate without normal. LUNGS: Clear to auscultation without rhonchi or rales. ABDOMEN: Protuberant. Bowel sounds present. EXTREMITIES: Upper extremity muscle strength judged to be 4/5 for the left arm. The patient has some pain and discomfort. Palpation lightly in the area of the left shoulder causes significant pain and discomfort. The patient complains of some pain that is going down into the lateral portion of her arm with certain movements. Notes some swelling in this area. MUSCULOSKELETAL: Without significant scoliosis, kyphosis, or lordosis. Lower extremity muscle strength on the left is 5-/5 and the right 5-/5. Has some limitation in motion secondary to her knee pain. ASSESSMENT: 1. Left shoulder pain, which is most problematic item today. 2. Left knee pain, status post arthroplasty. 3. Right knee continues to be painful. 4. History of radicular pain, status post failed back syndrome. 5. Fibromyalgia. RECOMMENDATIONS: We discussed treatment options with the patient. At this juncture, she has continued to have pain and discomfort involving her left shoulder. She is not moving it very much. We have discussed the possibility of frozen shoulder and worsening of pain, which can be exacerbated by the lack of shoulder movement. The patient has been given a script. She will go to physical therapy for evaluation. Possibility exists of injections in the future. A script for her medications of hydrocodone 10/325 1 p.o. t.i.d., total of 180 and amitriptyline 25 mg 2 tablets at bedtime, Voltaren gel to the upper extremity q.i.d., Savella 50 mg b.i.d. and tizanidine have been rewritten. We would like to thank you for letting us participate in her care. We hope she continues to improve. By: [id number]. Jd Moy MD /DEMAR
== END ==
LOC: M.PC 07-06 10:40
DX: M25.512 Pain in left shoulder (principal); M25.562 Pain in left knee; M96.1 Postlaminectomy syndrome, not elsewhere classified; M79.7 Fibromyalgia; Z96.652 Presence of left artificial knee joint

== ENCOUNTER → 2018-08-08 | Outpatient (CLI) | payer OTHER ==
[~2018-08-08] MED LIST changes: +PHENTERMINE H37.5 MG PO
--- NOTE | 2018-08-16 09:41 | PAINCON ---
[address] [address] PAIN MANAGEMENT CONSULTATION Name: NANDOTORRIE Room: [facility]#: [id number] Admission: 08/08/18 Attend Phys: Bernice Moy MD Discharge: Date of : 63 Report #: [id number] THIS REPORT FOR: //name// CC: Armin Moy DATE OF SERVICE: 08/08/2018 PRIMARY CARE PHYSICIAN: Armin Shah MD CHIEF COMPLAINT: Here for medication renewal. HISTORY: The patient is a 53-year-old female who has been followed in the pain clinic because of chronic pain. She has had a left knee replacement. Continues to have some pain in her left shoulder. She has noted worsening of her pain because of this usually cold weather. Complains today of right hip pain as well as low back pain. Notes that the pain radiates down into her right hip. She recently fell and has noticed an increase in pain since the fall. She was given a steroid Dosepak to take. She has completed this. Feels that her left shoulder is a bit better since the use of this medication. Rates her pain overall as an 8/10 at this point. ALLERGIES: No known drug allergies. CURRENT MEDICATIONS: Wellbutrin 300 mg, Cymbalta 60 mg b.i.d., [place] 10 mg t.i.d., hydrochlorothiazide 25 mg t.i.d., Linzess 290 mcg, Relafen 750 mg b.i.d., Zanaflex 4 mg, Topamax 100 mg b.i.d., Desyrel 50 mg at bedtime, multivitamins. PAIN CLINIC ASSESSMENT/PQRS: 1. The patient does suffer from osteoarthritis involving her left knee, which has been replaced. Does have some pain and discomfort in her right hip. Has noted some increased pain in her left shoulder after a recent fall. 2. Height 5 feet 5 inches, weight 289 pounds, BMI is 48.5. 3. Vital Signs: Blood pressure 132/78, heart rate 112, respiratory rate 16, room air saturation 95%, temperature 98.4. 4. Pain intensity 810. 5. Fall history: The patient fell recently and injured her left shoulder. 6. Blood thinner. The patient is not on a blood thinning medication. 7. Hypertension. The patient is not being treated for hypertension. 8. Opioids. The patient receives her medications from one source, the pain clinic. 9. Tobacco: The patient denies use of tobacco. 10. Illicit drug use. The patient denies use of illicit or recreational drugs. 11. Tobacco: The patient denies smoking. 12. Alcohol: The patient denies [place] [address] PAIN MANAGEMENT CONSULTATION Name: TORRIE MOY Room: [facility]#: [id number] Admission: 08/08/18 Attend Phys: Bernice Moy MD Discharge: Date of : 63 Report #: [id number] PHYSICAL EXAMINATION: GENERAL: The patient is a well-developed, well-nourished, somewhat obese black female, appears her stated age. She is alert and oriented x 3. Her affect is appropriate. Speech is fluent. HEENT: Normocephalic, atraumatic. Extraocular eye muscles intact. Sclerae nonicteric. Mucous membranes are moist. The patient ____. NECK: Without adenopathy or JVD. HEART: Rate normal without murmur. LUNGS: Clear to auscultation without rhonchi or rales. ABDOMEN: Protuberant. Bowel sounds present. EXTREMITIES: Upper extremity muscle strength is judged to be 4/5 for the major muscle groups in the left arm. The patient has some pain in this area. Notes some pain in the left shoulder. The patient complains of some pain involving her right hip. MUSCULOSKELETAL: Without significant scoliosis, kyphosis or lordosis. Lower extremity muscle strength is judged to be 5-/5 on the right and 4+ on the left. Some limitation secondary to knee pain on the left. ASSESSMENT: 1. Left shoulder pain, which is most problematic today. 2. Left knee pain status post arthroplasty. 3. Right knee continues to be painful. 4. History of lumbar radicular pain status post failed back syndrome. 5. Fibromyalgia. RECOMMENDATIONS: We discussed treatment options with the patient. At this juncture, she will continue with her current medications. A script for her medications have been reissued. She will continue with hydrocodone 10/325 one p.o. t.i.d. 2 tablets 3 times daily, total of 180 tablets prescribed, amitriptyline 60mg, 25 mg total of 50 at bedtime, Voltaren gel to the upper extremity, Savella 50 mg b.i.d., tizanidine 4 mg b.i.d. p.r.n. The patient will call us if she has any concerns. Hopefully, she will continue to improve. Hopefully, her shoulder will continue to improve. The weather seems to have a significant bearing on her pain at this juncture. We would like to thank you for letting us participate in her care. We hope she continues to improve. <ELECTRONICALLY SIGNED> By: Bernice Moy MD 08/16/18 0941 [id number]. Jd Moy MD /DEMAR
== END ==
LOC: M.PC 05:51
DX: M25.562 Pain in left knee (principal); G89.29 Other chronic pain; Z79.899 Other long term (current) drug therapy; Z96.652 Presence of left artificial knee joint

== ENCOUNTER → 2018-09-26 | Outpatient (CLI) | payer OTHER ==
--- NOTE | ~2018-09-26 | PAINCON ---
[address] [address] PAIN MANAGEMENT CONSULTATION Name: TORRIE MOY Room: [facility]#: [id number] Admission: 09/26/18 Attend Phys: Bernice Moy MD Discharge: Date of : 63 Report #: [id number] THIS REPORT FOR: //name// CC: Armin Moy DATE OF SERVICE: 09/26/2018 CHIEF COMPLAINT: Here for medication renewal. HISTORY: The patient is a 53-year-old female who suffers from chronic pain. She has had knee replacements. She has had back surgery and continues to have failed back syndrome. She has some pain in her left shoulder. She has been having some pain in her right hip. She has returned to clinic today. She is experiencing pain in the right hip and low back. She states that she has run out of her medications. She has not had them since 09/07/2018. She notes increase in pain because of lack of medications. She feels that she is "hurting all over." She notes activities and change in weather, all exacerbate her discomfort. She has returned today for renewal of her medications. ALLERGIES: No known drug allergies. CURRENT MEDICATIONS: Wellbutrin 300 mg, Cymbalta 60 mg b.i.d., [employer] 10 mg t.i.d., hydrochlorothiazide 25 mg t.i.d., Linzess 290 mcg, Relafen 750 mg b.i.d., Zanaflex 4 mg, Topamax 100 mg b.i.d., Desyrel 50 mg at bedtime, multivitamins. PAIN CLINIC ASSESSMENT AND PQRS: 1. The patient does suffer from arthritis involving her left knee. She has had the knee replaced. She has some right hip discomfort as well as some left shoulder pain. 2. The patient is not being treated for rheumatoid arthritis. 3. Height 5 feet 5 inches, weight 298 pounds, BMI is 50. 4. Blood pressure 138/94, heart rate 99, respiratory rate 20, room air saturation 97%, temperature 98. 5. Pain intensity: 10/10. 6. Fall history: The patient fell and injured her shoulder, which was noted at the last visit. 7. Blood thinner: The patient is not on a blood thinning medication. 8. Hypertension: The patient is not being treated for hypertension. 9. Opioids: The patient receives medications from one source from the Pain Clinic. 10. Tobacco: The patient denies use of tobacco. 11. Alcohol: The patient denies use of alcoholic beverages on a regular basis. 12. Tobacco: The [place] [address] PAIN MANAGEMENT CONSULTATION Name: TORRIE MOY Room: [facility]#: [id number] Admission: 09/26/18 Attend Phys: Bernice Moy MD Discharge: Date of : 63 Report #: [id number] PHYSICAL EXAMINATION: GENERAL: The patient is a well-developed, well-nourished, white female. She appears her stated age. She is alert and oriented x 3. Her affect is appropriate. Speech is fluent. HEENT: Normocephalic, atraumatic. Extraocular eye muscles intact. Sclerae nonicteric. Mucous membranes are moist. NECK: Without adenopathy or JVD. HEART: Regular rate. ABDOMEN: Nontender. Bowel sounds present. LUNGS: Clear to auscultation. EXTREMITIES: Upper extremity muscle strength is judged to be 4/5 for the major muscle groups in the upper extremity and has some pain in the left arm. The patient also has some pain in her left shoulder. She has some pain in the right hip. MUSCULOSKELETAL: Without significant scoliosis, kyphosis or lordosis. Lower extremity muscle strength is judged to be 5-/5 for the major muscle groups. The patient notes limitation in movement of her left knee. ASSESSMENT: 1. Left shoulder pain. 2. Left knee pain, status post arthroplasty. 3. Right knee continues to be painful. 4. History of lumbar radicular pain, status post failed back syndrome. 5. Fibromyalgia. RECOMMENDATIONS: We discussed treatment options with the patient. Risks and benefits of opioid medications were again discussed. We will renew the patient's medications. Possible complications of opioid use could include but are not limited to dependency as well as lack of effectiveness secondary to tolerance. A script for the patient's medications have been rewritten. She will follow up in the future as needed. She will call us if she has any concerns. We would like to thank you for letting us participate in her care. We hope she continues to improve. By: [id number]. Jd Moy MD /cheo
== END ==
LOC: M.PC 09-21 04:33
DX: G89.29 Other chronic pain (principal); M25.512 Pain in left shoulder; M25.561 Pain in right knee; M25.562 Pain in left knee; M54.5 Low back pain; Z96.653 Presence of artificial knee joint, bilateral; Z79.899 Other long term (current) drug therapy; Z79.891 Long term (current) use of opiate analgesic

== ENCOUNTER → 2018-11-02 | Outpatient (CLI) | payer OTHER ==
[~2018-11-02] MED LIST changes: +METOPROLOL ER PO
--- NOTE | ~2018-11-02 | PAINCON ---
[address] [address] PAIN MANAGEMENT CONSULTATION Name: TORRIE MOY [facility]: [facility]#: [id number] Admission: 11/02/18 Attend Phys: Bernice Moy MD Discharge: Date of : 63 Report #: [id number] THIS REPORT FOR: //name// CC: Armin Moy DATE OF SERVICE: 11/02/2018 CHIEF COMPLAINT: Pain in the right hip as well as low back. HISTORY: The patient is a 53-year-old female who has been followed in the pain clinic. As you recall, she has some significant problems with her back. She has undergone lumbar surgery. Suffers from failed back syndrome. Finds that her medications are helpful. She has had pain in her left shoulder. Was having pain in her right hip and has pain in her left knee. Rates her pain as a 10/10. At this juncture, she has run out of her medications. She has returned today for renewal of her medications. ALLERGIES: No known drug allergies. CURRENT MEDICATIONS: Wellbutrin 300 mg, Cymbalta 60 mg b.i.d., [place] 10 mg b.i.d., hydrochlorothiazide 25 mg t.i.d., Linzess 290 mcg, Relafen 750 mg b.i.d., Zanaflex 4 mg, Topamax 100 mg b.i.d., Desyrel 50 mg at bedtime, multivitamins. PAIN CLINIC ASSESSMENT/PQRS: 1. The patient does suffer from arthritis involving her left knee. She has had knee replacement. She is having some pain and discomfort in her left hip and low back area. She also has some discomfort in her left shoulder. She is not being treated for rheumatoid arthritis. 2. Height 5 feet 5 inches, weight 304 pounds, BMI is 50. 3. Vital signs: Blood pressure 147/92, heart rate 76, respiratory rate 16, room air saturation is 98%. Pain intensity 10/10. 4. Fall history: The patient has not fallen in the last few months. 5. Blood thinner. The patient is not on a blood thinning medication. 6. Hypertension. The patient is not being treated for hypertension. 7. Opiates greater than 6 weeks. The patient received medication from one source the pain clinic. 8. Risk assessment tool, low for opioid use. 9. Tobacco: The patient denies use of tobacco. 10. Alcohol: The patient denies use of alcoholic beverages. PHYSICAL EXAMINATION: GENERAL: The patient is a well-developed, well-nourished black female. Somewhat overweight. She is accompanied by her . HEENT: Normocephalic, atraumatic. Extraocular eye [place] [address] PAIN MANAGEMENT CONSULTATION Name: TORRIE MOY Room: [facility]#: [id number] Admission: 11/02/18 Attend Phys: Bernice Moy MD Discharge: Date of : 63 Report #: [id number] nonicteric. Mucous membranes are moist. NECK: Without adenopathy or JVD. HEART: Regular rate. ABDOMEN: Nontender. LUNGS: Clear to auscultation. EXTREMITIES: Upper extremity muscle strength judged to be 4/5 for the major muscle groups in the upper extremity. The patient has some pain in the left arm. She has had some pain in the right arm. She is having pain in the right hip as well as pain in the right low back area. The patient without significant scoliosis, kyphosis or lordosis. The patient complains of some pain in the left knee area as well. ASSESSMENT: 1. Right hip pain, low back. 2. Low back pain. 3. Left knee pain status post arthroplasty. 4. 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 5. Fibromyalgia. RECOMMENDATIONS: We discussed treatment options with the patient. At this juncture, we will continue with her current medications. She and her are aware that opioid medications can be problematic. We had this discussion a number of times. She feels that the medication enables her to engage in activities, she would not be able to without their use. States that she is keeping the medications in a guarded area. She does have young grandchildren and others around. She would like to have her medications renewed. We will rewrite her medications. A script for amitriptyline 25 mg 1 p.o. at bedtime to 2 tablets at bedtime have been written. The patient will also continue with diclofenac gel q.i.d. She finds that this medication has been helpful in the upper extremity pain. She feels hydrocodone 10/325 one p.o. 2 tablets t.i.d. have been rewritten. The patient will also continue with Savella 50 mg tablets 1 p.o. b.i.d. and Zanaflex 4 mg b.i.d. to help control the pain. We would like to thank you for letting us participate in her care. We hope she continues to improve. By: [id number]. Jd Moy MD /nt
== END ==
LOC: M.PC 04:58
DX: M54.16 Radiculopathy, lumbar region (principal); M25.551 Pain in right hip; M25.562 Pain in left knee; M79.7 Fibromyalgia

== ENCOUNTER → 2018-12-12 | Outpatient (CLI) | payer OTHER ==
--- NOTE | ~2018-12-12 | PAINCON ---
[address] [address] PAIN MANAGEMENT CONSULTATION Name: TORRIE MOY Room: [facility] ROSEMARY MendezKevinAnthonyKevin#: [id number] Admission: 12/12/18 Attend Phys: Bernice Moy MD Discharge: Date of : 63 Report #: [id number] THIS REPORT FOR: //name// CC: Armin Moy DATE OF SERVICE: 12/12/2018 CHIEF COMPLAINT: Here for medication renewal. HISTORY: The patient is a 53-year-old female, who has been followed in the pain clinic. As you recall, she has chronic back pain. She has returned for renewal of her medications. She has had back surgery and suffers from failed back syndrome. She continues to find that the medications were helpful. She has had some pain in the left shoulder. Also, has had some pain in her right hip. She has had left knee pain. Overall, today she rates her pain as a 10/10. As a result of her insurance, she was unable to get her medications and continue them as she would have liked last month. As a result, she feels like she is trying to catch up. Because of this, she has noticed increased pain and discomfort. She rates her pain as a 10/10. She has had no complications. She has had no true withdrawal complaints, but has noted an increase in pain intensity. She also has fibromyalgia. She has noted a flare up in this pain as well. She feels that she is sore "everywhere." She has returned today for renewal of her medications. Pain is worse with most activities. CURRENT MEDICATIONS: Wellbutrin 100 mg, Cymbalta 60 mg b.i.d., and [place] 10 mg 2 tablets t.i.d. The patient also finds use of Voltaren, Savella in conjunction with tizanidine helpful. She is on hydrochlorothiazide 25 mg, Linzess 290 mcg, Relafen 750 mg b.i.d., Zanaflex 4 mg, Topamax 100 mg b.i.d., Desyrel 50 mg at bedtime as well as Elavil 25 mg at bedtime. ALLERGIES: No known drug allergies. PAIN CLINIC ASSESSMENT AND PQRS: 1. The patient continues to have pain and discomfort from osteoarthritic changes in her knees. She has had a left knee replacement. She also has some left hip pain. She has some low back pain. She has pain in her left shoulder. She is not being treated for rheumatoid arthritis. 2. Pain intensity is 10/10. 3. Fall history: The patient has not fallen in the last 3 months. 4. Blood thinner. The patient is not on a blood thinning medication. 5. Hypertension. The patient is not being treated for hypertension. 6. Opioids greater than 6 weeks. The [facility]. 7. Risk assessment tool, low for opioid use. 8. Tobacco. The [place] [address] PAIN MANAGEMENT CONSULTATION Name: TORRIE MOY Room: [facility]SEMARY Mckeon#: [id number] Admission: 12/12/18 Attend Phys: Bernice Moy MD Discharge: Date of : 63 Report #: [id number] 9. Alcohol. The patient denies use of alcoholic beverages. PHYSICAL EXAMINATION: GENERAL: The patient is a well-developed, well-nourished black female. She appears her stated age. She is accompanied by her . She is alert and oriented x 3. Her affect is appropriate. Speech is fluent. Height is 5 feet 5 inches, weight is 303 pounds, and BMI is 50. VITAL SIGNS: Blood pressure is 157/91, heart rate is 74, respiratory rate is 16, room air saturation is 98%, and temperature is 98.2. HEENT: Normocephalic, atraumatic. Extraocular eye muscles intact. Sclerae nonicteric. Mucous membranes are moist. NECK: Without adenopathy or JVD. HEART: Regular rate. ABDOMEN: Protuberant, nontender. LUNGS: Clear to auscultation. EXTREMITIES: Upper extremity muscle strength is judged to be 4/5 for the major muscle groups in the upper extremity. The patient has pain and discomfort in the left arm. Also, has some pain in her right arm. The patient has pain in the right hip as well as in the low back area. The patient is without scoliosis, kyphosis, or lordosis. She complains of some left knee pain as well. IMPRESSION: 1. Right hip, low back pain. 2. Left knee pain, status post arthroplasty. 3. Lumbar radicular pain, status post failed back syndrome. 4. Fibromyalgia. RECOMMENDATIONS: We have discussed treatment options with the patient. At this juncture, we will continue with her medications. We discussed the risks and benefits of opioid medications. The patient has had some problem with her insurance carrier. She has been unable to get her medications on a regular basis. She feels that the medications are quite helpful. She is hopeful that she will be able to continue to get her medication in a timely fashion. She is not having any complications from use of the medication. She feels that they are helpful. Overall, her pain is a 10/10. She is hoping that over the next few days as she continues to take her medications, her pain will return to baseline to a much more stable level. She has been given a script for renewal of her medications. She will continue with the Savella 50 mg 1 p.o. b.i.d. She will also continue with Zanaflex 4 mg p.o. b.i.d. The patient has been provided with hydrocodone 10/325 2 tablets p.o. t.i.d. We explained to the patient if she were able to decrease her opioid medication, we would be able to try to go for ____ monthly visit every 2 months. She will also continue with the Elavil as well as the Voltaren gel. We will continue with the patient's medications and her complex [place] [address] PAIN MANAGEMENT CONSULTATION Name: TORRIE MOY Room: [facility]#: [id number] Admission: 12/12/18 Attend Phys: Bernice Moy MD Discharge: Date of : 63 Report #: [id number] We would like to thank you for letting us to participate in her care. We hope she continues to improve. By: [id number]. Jd Moy MD /PMT
== END ==
LOC: M.PC 10:50
DX: M54.16 Radiculopathy, lumbar region (principal); M25.551 Pain in right hip; M25.562 Pain in left knee; M79.7 Fibromyalgia; Z79.899 Other long term (current) drug therapy; Z96.652 Presence of left artificial knee joint

== ENCOUNTER → 2019-01-09 | Outpatient (CLI) | payer OTHER ==
--- NOTE | ~2019-01-09 | PAINCON ---
[address] [address] PAIN MANAGEMENT CONSULTATION Name: TORRIE MOY Room: [facility] Jose.#: [id number] Admission: 01/09/19 Attend Phys: Bernice Moy MD Discharge: Date of : 63 Report #: [id number] THIS REPORT FOR: //name// CC: Armin Moy DATE OF SERVICE: 01/09/2019 CHIEF COMPLAINT: Continued back and leg pain. HISTORY: The patient is a 53-year-old female who has been followed in the pain clinic because of chronic pain involving her back. She also has fibromyalgia. Feels that her fibromyalgia has flared up. She has some generalized pain all over. She rates her pain as a 10/10. Feels that the hydrocodone and Savella are beneficial. She has noted some increased discomfort with activities. The hot weather has not been helpful. She continues to take her medications for muscle spasms, Zanaflex as well as Elavil at bedtime and uses the Voltaren gel to the upper extremity. She feels that the hydrocodone and the Savella are beneficial as well. She has returned today with the hope that she can renew her medications and that she would continue to note some improvement in her pain. CURRENT MEDICATIONS: Wellbutrin 100 mg, Cymbalta 60 mg b.i.d., [place] 10 mg 2 tablets t.i.d. The patient also finds Voltaren, Savella in conjunction with tizanidine helpful. The patient is on hydrochlorothiazide 25 mg, Linzess 290 mcg, Relafen 750 mg b.i.d., Zanaflex 4 mg, Topamax 100 mg b.i.d., Desyrel 50 mg at bedtime as well as Elavil 25 mg at bedtime. ALLERGIES: No known drug allergies. PAIN CLINIC ASSESSMENT/PQRS: 1. The patient does have pain and discomfort from osteoarthritic changes in her knee. Has had left knee replacement. Also, has left hip pain. This pain in the low back area. Has left shoulder pain. The patient is not being treated for rheumatoid arthritis. 2. Height 5 feet 5 inches, weight 306 pounds, BMI is 51. 3. Vital signs: Blood pressure 157/89, heart rate 92, respiratory rate 16, room air saturation 97%, temperature 97.7. 4. Pain score 10/10. 5. Fall history: The patient has not fallen in the last 3 months. 6. Blood thinner. The patient is not on a blood thinning medication. 7. Hypertension. The patient is not being treated for hypertension. 8. Opioids greater than 6 weeks. The [facility]. 9. Risk assessment tool, low for opioid use. 10. Tobacco: The patient [place] [address] PAIN MANAGEMENT CONSULTATION Name: TORRIE MOY Room: [facility]#: [id number] Admission: 01/09/19 Attend Phys: Bernice Moy MD Discharge: Date of : 63 Report #: [id number] 11. Alcohol: The patient denies use of alcoholic beverages. PHYSICAL EXAMINATION: GENERAL: The patient is a well-developed, well-nourished black female, appears her stated age. She is alert and oriented x 3. Her affect is appropriate. She is accompanied by her . HEENT: Normocephalic, atraumatic. Extraocular eye muscles intact. Sclerae nonicteric. NECK: Without adenopathy or JVD. HEART: Regular rate. ABDOMEN: Protuberant, nontender. LUNGS: Clear to auscultation. EXTREMITIES: Upper extremity muscle strength judged to be 4/5 for the major muscle groups in the upper extremity. The patient has pain and discomfort in her left arm. Has pain in the right arm. Has right hip pain as well as low back pain. The patient without significant scoliosis, kyphosis, or lordosis. Complains of left knee discomfort. IMPRESSION: 1. Right hip pain, low back pain. 2. Left knee pain status post arthroplasty. 3. 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 4. Fibromyalgia exacerbation. RECOMMENDATIONS: We discussed treatment options with the patient. At this juncture, we will continue with her medications. She feels that the medications are beneficial. She is not getting as much pain relief as she would like, but still feels that they are beneficial. Notes that she has generalized pain. She is aware that opioid medications can be helpful. She is aware that opioid medications can become less effective over time due to tolerance. She feels that the medications are helpful, not to the level that she would like, but they are beneficial and would like to continue. We have rewritten her script for Zanaflex 4 mg one p.o. b.i.d., amitriptyline 25 mg 2 tablets at bedtime for a total of 50, Savella 50 mg b.i.d., hydrocodone 10/325, total of 2 tablets t.i.d. for a total of 180 tablets per month. We would like to thank you for letting us participate in her care. We hope she continues to improve. By: [id number]. Jd Moy MD /DEMAR
== END ==
LOC: M.PC 05:17
DX: G89.29 Other chronic pain (principal); M25.551 Pain in right hip; M54.5 Low back pain; M54.16 Radiculopathy, lumbar region; Z96.652 Presence of left artificial knee joint; Z79.899 Other long term (current) drug therapy; Z79.891 Long term (current) use of opiate analgesic

== ENCOUNTER → 2019-02-06 | Outpatient (CLI) | payer OTHER ==
[~2019-02-06] MED LIST changes: +B12INJ IM; +BUTALB-APAP-CA1 EACH PO
--- NOTE | ~2019-02-06 | PAINCON ---
[facility] [address] [place] [address] PAIN MANAGEMENT CONSULTATION Name: TORRIE MOY Room: [facility].#: [id number] Admission: 02/06/19 Attend Phys: Bernice Moy MD Discharge: Date of : 63 Report #: [id number] THIS REPORT FOR: //name// CC: Armin Moy DATE OF SERVICE: 02/06/2019 CHIEF COMPLAINT: Continued pain in the low back area. HISTORY: The patient is a 53-year-old female who has been followed in the pain clinic because of chronic pain. She has as you may recall undergone back surgery. Continues to have some pain and discomfort from this. She also has a history of fibromyalgia. This occasionally flares up. The patient overall feels that things are about the same. She feels that some days are better than others. She feels that her headaches have gotten somewhat worse. She states that she will see her primary care physician with possibility of evaluation regarding migraines. Rates her pain as a 9/10. Continues to use her medications to help quell her pain and discomfort. Notes that pain is exacerbated by activity. CURRENT MEDICATIONS: Wellbutrin 100 mg, Cymbalta 60 mg b.i.d., [place] 10 mg 2 tablets t.i.d. The patient also uses Voltaren, Savella in conjunction with tizanidine. The patient uses hydrochlorothiazide 25 mg, Linzess 290 mcg, Relafen 750 mg b.i.d., Zanaflex 4 mg, Topamax 100 mg b.i.d., Desyrel 50 mg at bedtime, Elavil 25 mg at bedtime. ALLERGIES: No known drug allergies. PAIN CLINIC ASSESSMENT AND PQRS: 1. The patient does have pain and discomfort from osteoarthritic changes in her knees. She has had a left knee replacement. Has left hip pain. Has left shoulder pain. The patient has low back pain status post back surgery. The patient is not being treated for rheumatoid arthritis. 2. Height 5 feet 5 inches, weight 304 pounds, BMI is 50. 3. Blood pressure 135/101, heart rate 100, respiratory rate 16, room air saturation 98%, temperature 98.4. 4. Pain intensity 02/27. 5. Fall history: The patient has not fallen in the last 3 months. 6. Blood thinner. The patient is not on a blood thinning medication. 7. Hypertension. The patient is not being treated for hypertension. 8. Opioids greater than 6 weeks. The patient receives [facility] from [facility]. 9. Risk assessment tool, low for opioid use. 10. Tobacco: The [place] [address] PAIN MANAGEMENT CONSULTATION Name: TORRIE MOY Room: [facility]#: [id number] Admission: 02/06/19 Attend Phys: Bernice Moy MD Discharge: Date of : 63 Report #: [id number] 11. Alcohol: The patient denies use of alcoholic beverages. PHYSICAL EXAMINATION: GENERAL: The patient is a well-developed, well-nourished black female, appears her stated age. She is alert and oriented x 3. Her affect is appropriate. Speech is fluent. Her is accompanying her today. HEENT: Normocephalic, atraumatic. Extraocular eye muscles intact. Sclerae nonicteric. Mucous membranes are moist. NECK: Without adenopathy or JVD. HEART: Regular rate. ABDOMEN: Protuberant and nontender. LUNGS: Clear to auscultation without rhonchi. EXTREMITIES: Upper extremity muscle strength judged to be 4/5 for the major muscle groups in the upper extremity. The patient has pain in her right arm. Has pain in her right hip and low back area. The patient without significant scoliosis, kyphosis or lordosis. Has a well-healing scar on the left knee. IMPRESSION: 1. Right hip pain, low back pain. 2. Left knee pain status post arthroplasty. 3. 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 4. Fibromyalgia. 5. Migraine headaches. RECOMMENDATIONS: We discussed treatment options with the patient. At this juncture, we will continue with her medications. She is aware that opioid medications can be problematic. She finds that the medications are helpful. She is able to engage in activities, she would not be able to without their use. She uses them as sparingly as possible. She has noted some increase in migraine headaches. She will contact her primary care physician regarding the migraines. She will continue with the [place] 10 one p.o. t.i.d. A script for this medication has been rewritten. She will also continue with Elavil 25 mg ___ 2 tablets at bedtime. She will also continue with Voltaren gel 1% to the upper extremity, right arm. She will continue with Savella ____ mg b.i.d. and use the muscle relaxant, Zanaflex. The patient does not feel that she has been over sedated with her medications. She is able to think clearly. She is able to interact with her family without problem. We will continue with her medications. She keeps her medications in a guarded area. We will continue with her current complex medical management using opioids. By: [id number]. Jd Moy MD /cheo
== END ==
LOC: M.PC 05:06
DX: M54.16 Radiculopathy, lumbar region (principal); M79.7 Fibromyalgia; G43.909 Migraine, unspecified, not intractable, without status migrainosus; M25.551 Pain in right hip; M25.562 Pain in left knee; Z79.899 Other long term (current) drug therapy

== ENCOUNTER → 2019-03-06 | Outpatient (CLI) | payer OTHER ==
--- NOTE | ~2019-03-06 | PAINCON ---
[facility] [address] [place] [address] PAIN MANAGEMENT CONSULTATION Name: TORRIE MOY Room: [facility]#: [id number] Admission: 03/06/19 Attend Phys: Bernice Moy MD Discharge: Date of : 63 Report #: [id number] THIS REPORT FOR: //name// CC: Armin Moy DATE OF SERVICE: 03/06/2019 CHIEF COMPLAINT: Here for medication renewal. HISTORY: The patient is a 53-year-old female who has been followed in the pain clinic. As you recall, she has a number of pain generators. She has pain involving her knees. She has pain, particularly in the right knee. She has noted some increased pain and discomfort. She and her recently moved with to household. There has been a considerable amount of lifting and bending. She also has a headache over the last few days. She has used her migraine medication. Notes that walking, sitting, standing, climbing stairs, lifting and bending arm cause a worsening of her discomfort. Feels that her medications are still helpful and feels that they are about 30% effective at this juncture. She would like to have her medications renewed. ALLERGIES: No known drug allergies. CURRENT MEDICATIONS: Wellbutrin 100 mg, Cymbalta 60 mg b.i.d., [place] ____ 2 tablets t.i.d. The patient also has used Voltaren, Savella in conjunction with tizanidine. The patient uses hydrochlorothiazide 25 mg, Linzess 290 mcg, Relafen 750 mg b.i.d., Zanaflex 4 mg, Topamax 100 mg b.i.d., Desyrel 50 mg at bedtime, and Elavil 25 mg at bedtime. PAIN CLINIC ASSESSMENT/PQRS: 1. Osteoarthritis. The patient has some osteoarthritic changes involving her knees. She has had a left knee replacement. She has left hip pain. Has left shoulder pain. Has low back pain status post back surgery. She is not being treated for rheumatoid arthritis. 2. Height 5 feet 5 inches, weight 306 pounds, BMI 51.2. 3. Vital signs: Blood pressure 146/86, heart rate 85, respiratory rate 16, room air saturation 98%. 4. Temperature 98.9. 5. Pain intensity 02/27. 6. Fall history: The patient has not fallen in the last 3 months. 7. Blood thinner. The patient is not on a blood thinning medication. 8. Hypertension. The patient is not being treated for hypertension. 9. Opioids greater than 6 weeks. The patient [facility]. 10. Risk assessment tool, low for opioid use. 11. Recreational drug use. [place] [address] PAIN MANAGEMENT CONSULTATION Name: TORRIE MOY Room: [facility]#: [id number] Admission: 03/06/19 Attend Phys: Bernice Moy MD Discharge: Date of : 63 Report #: [id number] 12. Tobacco: The patient denies use of tobacco. 13. Alcohol. The patient denies use of alcoholic beverages. PHYSICAL EXAMINATION: GENERAL: The patient is a well-developed, well-nourished black female, appears her stated age. She is obese. She is alert and oriented x 3. Her affect is appropriate. 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 HEENT: Normocephalic, atraumatic. Extraocular eye muscles intact. Sclerae nonicteric. Mucous membranes are moist. NECK: Without adenopathy or JVD. HEART: Regular rate. ABDOMEN: Protuberant. Bowel sounds present. EXTREMITIES: Upper extremities. LUNGS: Clear to auscultation without rhonchi. EXTREMITIES: Upper extremity muscle strength judged to be 4+/5 for the major muscle groups in the upper extremity. The patient has some pain and discomfort in her right arm. The patient has pain in the right hip and low back area. The patient is without significant scoliosis, kyphosis or lordosis. She has a well-healed scar on the left knee. IMPRESSION: 1. Right hip pain. 2. Low back pain. 3. Left knee pain status post arthroplasty. 4. 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 5. Fibromyalgia. 6. Migraine headaches. RECOMMENDATIONS: We discussed treatment options with the patient. At this juncture, we will continue with her medications. She and her have been lifting and packing. They have moved. She has noted exacerbation of her pain as a result of this. She is taking her medication as prescribed. She does not have any problems with the medications. We will continue with the Savella 50 mg 1 p.o. b.i.d. The patient also will continue with tizanidine 4 mg p.o. b.i.d. for muscle spasms. She finds that the hydrocodone 10/325 one p.o. ____ tablets t.i.d. have been written. She will also continue with Elavil 25 mg at bedtime and diclofenac gel to the upper extremities to help control pain. We would like to thank you for letting us participate in her care. We will continue with the complex medical management to help control the patient's pain. By: [id number]. Jd Moy MD /cheo
== END ==
LOC: M.PC 05:10
DX: M54.16 Radiculopathy, lumbar region (principal); M25.551 Pain in right hip; M79.7 Fibromyalgia; G43.909 Migraine, unspecified, not intractable, without status migrainosus

== ENCOUNTER → 2019-04-03 | Outpatient (CLI) | payer OTHER ==
[~2019-04-03] MED LIST changes: +TOPROL XL100 MG PO
--- NOTE | 2019-04-11 09:09 | PAINCON ---
[address] [address] PAIN MANAGEMENT CONSULTATION Name: NANDOTORRIE Room: [facility].#: [id number] Admission: 04/03/19 Attend Phys: Bernice Moy MD Discharge: Date of : 63 Report #: [id number] THIS REPORT FOR: //name// CC: Armin Moy DATE OF SERVICE: 04/03/2019 PRIMARY PHYSICIAN: Armin Shah MD CHIEF COMPLAINT: Here for medication. HISTORY OF PRESENT ILLNESS: The patient is a 53-year-old female who has been followed in the pain clinic. Continues to have pain, which is quite problematic. Continues to have some pain in her knees, right greater than left. Also, has some generalized pain. She has suffered from a headache today. She has been visiting her primary care physician. Because of the increased headaches, she continues to take her medications. She has used Savella. She feels that Cymbalta was more efficacious and would like to return to Cymbalta. She has seen her primary care physician for elevated blood pressures. She is considering weight loss surgery. Rates her pain as an 8/10 at this point. Pain is worse when she is walking, sitting, standing, climbing, lifting and moving. Feels that the medications are 30% effective in helping decrease pain. ALLERGIES: No known drug allergies. CURRENT MEDICATIONS: Wellbutrin 100 mg, Savella 50 mg, [place] 10/325 two tablets p.o. t.i.d., tizanidine 4 mg b.i.d., hydrochlorothiazide 25 mg, Linzess 290 mcg, Relafen 750 mg b.i.d., Topamax 100 mg b.i.d., Desyrel 50 mg at bedtime, Elavil 25 mg at bedtime. PAIN CLINIC ASSESSMENT AND PQRS: 1. The patient does have some arthritic changes involving her knees. She has had left knee replacement. She also complains of some left hip pain. Has pain in her right knee today. Status post back surgery. Not being treated for rheumatoid arthritis. 2. Height 5 feet 5 inches, weight 307 pounds, BMI 51. 3. Vital signs: Blood pressure 117/113, second blood pressure 165/140, temperature 98.6, heart rate 83, respiratory rate 18, room air saturation 96%. Pain intensity 8/10. 4. Fall history: The patient has not fallen in the last 3 months. 5. Blood thinner. The patient is not on a blood thinning medication. 6. Hypertension. The patient is being treated for hypertension. 7. Opioids greater than 6 weeks. The [facility] [place] [address] PAIN MANAGEMENT CONSULTATION Name: TORRIE MOY Room: [facility]#: [id number] Admission: 04/03/19 Attend Phys: Bernice Moy MD Discharge: Date of : 63 Report #: [id number] 8. Risk assessment tool, low for opioid use. 9. Recreational drug use. The patient denies. 10. Tobacco: The patient denies use of tobacco. 11. Alcohol: The patient denies use of alcoholic beverages. PHYSICAL EXAMINATION: GENERAL: The patient is a well-developed, well-nourished black female, appears her stated age. She is obese. She is alert and oriented. Her affect is appropriate. She is accompanied by her . HEENT: Normocephalic, atraumatic. Extraocular eye muscles intact. Sclerae nonicteric. Mucous membranes are moist. NECK: Without adenopathy or JVD. HEART: Regular rate. ABDOMEN: Protuberant. Bowel sounds present. EXTREMITIES: Upper extremity muscle strength judged to be 5/5 for the major muscle groups in the upper extremity. LUNGS: Generally clear to auscultation without rhonchi. MUSCULOSKELETAL: Upper extremity muscle strength judged to be 5-/5 for the major muscle groups in the upper extremity. The patient has pain and discomfort in the right arm. Has pain in her right hip as well as in her right knee and left knee. The patient is without significant scoliosis, kyphosis or lordosis. She has a well-healed scar over her left knee. IMPRESSION: 1. Migraine headaches. 2. Right and left knee pain. 3. Left knee status post arthroplasty. 4. Lumbar radiculopathy, status post failed back syndrome. 5. Fibromyalgia. 6. Obesity. RECOMMENDATIONS: We discussed treatment options with the patient. We will continue with her current medications. She feels her medications are helpful. We will discontinue use of Savella and resume use of Cymbalta. She feels that this medication has been more helpful. We will also continue with Voltaren gel to the upper extremities. The patient is aware that opioid medications can become less effective over time secondary to development of tolerance. She states she has taken her medication as prescribed. She is considering a weight reduction surgery in the future. A script for her medications has been rewritten. Hydrocodone 10/325 one p.o. t.i.d. total of 180 tablets, Elavil 25 mg 2 tablets at bedtime, Voltaren gel 2 g apply to the upper extremity q.i.d., Zanaflex 4 mg 1 p.o. b.i.d., Cymbalta 60 mg 1 p.o. b.i.d. The patient will call us if she has any concerns or problems with her medications. We would like to thank you for letting us participate in [place] care[place] [address] PAIN MANAGEMENT CONSULTATION Name: TORRIE MOY Room: [facility]#: [id number] Admission: 04/03/19 Attend Phys: Bernice Moy MD Discharge: Date of : 63 Report #: [id number] continues to improve. Her metoprolol has been increased from 50 mg to 100 mg daily. <ELECTRONICALLY SIGNED> By: Bernice Moy MD 04/11/19 0909 [id number] Quintin Moy MD /cheo
== END ==
LOC: M.PC 05:45
DX: G43.909 Migraine, unspecified, not intractable, without status migrainosus (principal); M25.562 Pain in left knee; M54.16 Radiculopathy, lumbar region; M79.7 Fibromyalgia; E66.09 Other obesity due to excess calories; Z96.652 Presence of left artificial knee joint

== ENCOUNTER → 2019-05-01 | Outpatient (CLI) | payer OTHER ==
--- NOTE | 2019-05-07 19:22 | PAINCON ---
[address] [address] PAIN MANAGEMENT CONSULTATION Name: TORRIE MOY Room: [facility]#: [id number] Admission: 05/01/19 Attend Phys: Bernice Moy MD Discharge: Date of : 63 Report #: [id number] THIS REPORT FOR: //name// CC: Armin Moy DATE OF SERVICE: 05/01/2019 CHIEF COMPLAINT: "I am having more pain in my left leg with some burning down the side." HISTORY: The patient is a 53-year-old female, who has been followed in the pain clinic. As you may recall, she has had back surgeries in the past. She has noticed a worsening of pain and discomfort in her left leg. There is a burning sensation down the lateral side. Radiates down into her foot. Overall, she feels that some muscle spasms are in the right as well as the left leg. She has noticed a worsening of this over the last 2-3 months. Feels that her medications are helpful. Still feels that the pain is problematic. She is about 35% improved with her medications. She rates her pain as a 9/10. She had a similar complaint on the right side that resolved. The patient noticed that the cold weather which is 12 degrees today has worsened her discomfort. Walking and sitting are problematic. ALLERGIES: No known drug allergies. CURRENT MEDICATIONS: Wellbutrin 100 mg, Savella 50 mg, [place] 10/325 two tablets p.o. t.i.d., tizanidine 4 mg b.i.d., hydrochlorothiazide 25 mg, Linzess 290 mcg, Relafen 750 mg b.i.d., Topamax 100 mg b.i.d., Desyrel 50 mg at bedtime, Elavil 25 mg at bedtime. PAIN CLINIC ASSESSMENT/PQRS: 1. The patient has some pain and discomfort involving her left leg. Has had knee replacement on the left. Complaints of some left hip pain. She is not being treated for rheumatoid arthritis. 2. Height 5 feet 5 inches, weight 310 pounds, BMI is 51.8. 3. Vital signs: Blood pressure 160/107. Heart rate 76, respiratory rate 16, room air saturation is 95%, temperature 98.4. 4. Pain intensity 9/10. 5. Fall history: The patient has not fallen in the last 3 months. 6. Blood thinner. The patient is not on a blood thinning medication. 7. Hypertension. The patient is being treated for hypertension. 8. Opioids greater than 6 weeks. PLAN: 1. The [facility] [place] [address] PAIN MANAGEMENT CONSULTATION Name: TORRIE MOY Room: [facility]#: [id number] Admission: 05/01/19 Attend Phys: Bernice Moy MD Discharge: Date of : 63 Report #: [id number] 2. Risk assessment tool, low for opioid use. 3. Functional assessment tool. 4. Recreational drug use: The patient denies. 5. Alcohol. The patient denies use of alcoholic beverages. PHYSICAL EXAMINATION: GENERAL: The patient is a well-developed, well-nourished, obese, black female, appears her stated age. She is alert and oriented x 3. Her affect is appropriate. Speech is fluent. HEENT: Normocephalic. The patient is accompanied by her . NECK: Without adenopathy or JVD. HEART: Regular rate. ABDOMEN: Protuberant. Bowel sounds present. EXTREMITIES: Upper extremity muscle strength judged to be 5/5 for the major muscle groups in the upper extremity. LUNGS: Generally clear to auscultation without rhonchi. MUSCULOSKELETAL: Lower extremity muscle strength judged to be 5-/5 for the major muscle groups in the lower extremity. The patient has some burning discomfort along the left thigh down into the calf. The patient is without significant scoliosis, kyphosis or lordosis. Has a well-healed scar over the left knee. IMPRESSION: 1. Migraine headaches. 2. Right and left knee pain. 3. Left knee pain status post arthroplasty. 4. Lumbar radiculopathy with radicular pain secondary to failed back syndrome. Has pain, which is radiating down the lateral portion of her leg, which is burning and consistent with nerve pain. 5. Fibromyalgia. 6. Obesity. RECOMMENDATIONS: We discussed treatment options with the patient. At this point, we will continue with her current medical regimen. She is aware that opioid medications can be helpful. She is aware that these medications can become less effective over time secondary to tolerance. She feels that her medications enable her to do more than she would be without their use. She keeps her medications in a guarded area. She has found that a Medrol Dosepak was helpful in the past. We will try to see whether a Medrol Dosepak will decrease some of her swelling and irritation around the left nerve radiating down the lateral portion of her leg. She will call us if she has any concerns. A script for her medications has been written. She will continue with tizanidine 4 mg p.o. b.i.d. for muscle spasms. She will continue with hydrocodone 10/325 two tablets t.i.d., total of 180 tablets, [place] [address] PAIN MANAGEMENT CONSULTATION Name: TORRIE MOY Room: [facility]#: [id number] Admission: 05/01/19 Attend Phys: Bernice Moy MD Discharge: Date of : 63 Report #: [id number] also continue with Cymbalta 60 mg 1 p.o. b.i.d. The patient will continue with Savella 60 mg b.i.d. and a Medrol Dosepak has been provided. <ELECTRONICALLY SIGNED> By: Bernice Moy MD 05/07/19 [id number]. Jd Moy MD /nt
== END ==
LOC: M.PC 04:10
DX: M25.561 Pain in right knee (principal); M25.562 Pain in left knee; G43.909 Migraine, unspecified, not intractable, without status migrainosus; M54.16 Radiculopathy, lumbar region; M79.7 Fibromyalgia; E66.01 Morbid (severe) obesity due to excess calories

== ENCOUNTER → 2019-05-29 | Outpatient (CLI) | payer OTHER ==
[~2019-05-29] MED LIST changes: +ELETRIPTAN HBR40 MG PO
--- NOTE | ~2019-05-29 | PAINCON ---
[facility] [address] [place] [address] PAIN MANAGEMENT CONSULTATION Name: TORRIE MOY Room: [facility].#: [id number] Admission: 05/29/19 Attend Phys: Bernice Moy MD Discharge: Date of : 63 Report #: [id number] THIS REPORT FOR: //name// CC: Armin Moy DATE OF SERVICE: 05/29/2019 CHIEF COMPLAINT: Medications are still helping. HISTORY: The patient is a 53-year-old female who has been followed in the pain clinic. She has a long history of back pain. She has had back surgery in the past. Continues to have failed back syndrome-type discomfort. Has pain that radiates down to her left leg. Feels that the pain on the left side is more problematic than that on the right. Has some numbness and tingling down into the left leg. Rates her pain as an 8.5/10. Activity such as walking and sitting can be problematic. Cold temperatures which we are experiencing have exacerbated her discomfort. Feels that the medication is helpful. She has tried rest. Sometimes use of alternating between hot and cold can be efficacious as well. She has returned today with the hopes of having her medications renewed. No new complications with her medications. She overall feels that they are helpful. ALLERGIES: No known drug allergies. CURRENT MEDICATIONS: Wellbutrin 100 mg, [place] 10/325 two tablets p.o. t.i.d., tizanidine 4 mg b.i.d., hydrochlorothiazide 25 mg, Linzess 290 mcg, Relafen 750 mg b.i.d., Topamax 100 mg b.i.d., Desyrel 50 mg at bedtime, Elavil 25 mg at bedtime. PAIN CLINIC ASSESSMENT AND PQRS: 1. The patient has some pain and discomfort in her left leg. Has had a left knee replacement. Complains of pain in the left hip. She is not being treated for rheumatoid arthritis. 2. Height 5 feet 5 inches, weight 313 pounds, BMI is 52.2. 3. Vital signs: Blood pressure 170/99, heart rate 92, respiratory rate is 16, room air saturation 96% and temperature 97.8. 4. Pain intensity 8.5/10. 5. Fall history: The patient has not fallen in the last 3 months. 6. Blood thinner. The patient is not on a blood thinning medication. 7. Hypertension. The patient is being treated for hypertension. 8. Opioids greater than 6 weeks. The patient received medication from [facility]. 9. Risk assessment tool, low for opioid use. 10. Functional [place] [address] PAIN MANAGEMENT CONSULTATION Name: TORRIE MOY Room: [facility]#: [id number] Admission: 05/29/19 Attend Phys: Bernice Moy MD Discharge: Date of : 63 Report #: [id number] 11. Recreational drug use: The patient denies. 12. Alcohol. The patient denies use of alcoholic beverages. PHYSICAL EXAMINATION: GENERAL: The patient is a well-developed, well-nourished black female, appears her stated age. She is alert and oriented x 3. Her affect is appropriate. Speech is fluent. Her is accompanying her. HEENT: Normocephalic, atraumatic. Extraocular eye muscles intact. Sclerae nonicteric. Mucous membranes are moist. NECK: Without adenopathy. EXTREMITIES: Upper extremity muscle strength judged to be 5/5 for the major muscle groups in the upper extremity. LUNGS: Generally clear to auscultation without rhonchi. MUSCULATURE: Lower extremity strength judged to be 5-/5 for the major muscle groups in the lower extremity. The patient continues to have some pain and discomfort down the left leg and into the calf. The patient is without significant scoliosis, kyphosis or lordosis. Well-healed scar in the left knee. IMPRESSION: 1. History of migraine headaches. 2. History of chronic back pain, status post back surgery/failed back syndrome. 3. Right and left knee pain. 4. Left knee pain, status post arthroplasty. 5. Fibromyalgia history. 6. Obesity. RECOMMENDATIONS: We discussed treatment options with the patient. At this juncture, we will continue with her medications. She feels medications are helpful. She is aware the opioid medications can be helpful to an extent. They can become less effective over time because of development of tolerance. She does not show any signs of addiction. She has taken her medication as prescribed. Keeps her medications in a guarded area. Has about 35% improvement in her pain with use of her medications. She was using Savella. She is no longer using that medication. We will rewrite the patient's medications. A script for Cymbalta 60 mg 1 p.o. b.i.d. has been rewritten. The patient will also continue with tizanidine 4 mg 1 p.o. b.i.d. muscle spasms. She will continue with hydrocodone 10 mg 2 tablets p.o. t.i.d., a total of 180 tablets have been dispensed for this coming month. She will call us if she has any concerns. We would like to thank you for letting us participate in her care. By: [id number]. Jd Moy MD /nt
== END ==
LOC: M.PC 05:02
DX: M54.9 Dorsalgia, unspecified (principal); G89.29 Other chronic pain; G43.909 Migraine, unspecified, not intractable, without status migrainosus; M25.561 Pain in right knee; M25.562 Pain in left knee; E66.9 Obesity, unspecified; I10 Essential (primary) hypertension; Z79.891 Long term (current) use of opiate analgesic; Z79.899 Other long term (current) drug therapy

== ENCOUNTER → 2019-06-26 | Outpatient (CLI) | payer OTHER ==
[~2019-06-26] MED LIST changes: +NARCAN4 MG NARES
--- NOTE | ~2019-06-26 | PAINCON ---
[address] [address] PAIN MANAGEMENT CONSULTATION Name: TORRIE MOY Room: [facility]#: [id number] Admission: 06/26/19 Attend Phys: Bernice Moy MD Discharge: Date of : 63 Report #: [id number] THIS REPORT FOR: //name// CC: Armin Moy DATE OF SERVICE: 06/26/2019 FOLLOWUP COMPLAINT: Still having migraine headaches. HISTORY: The patient is a 54-year-old female who has been followed in the pain clinic. As you may recall, she has chronic pain in her low back as well as in her legs. She has undergone back surgery. She has noted some increased swelling in her lower extremities. This did increase the pain. She has noted some improvement in the lower extremity swelling. She has had some occasions where she felt somewhat lightheaded and dizzy. Feels that the migraine pain continues to be somewhat problematic. States that her medications were changed somewhat by her primary doctor in regards to the headaches. She has noticed that the swelling, which was somewhat problematic for about 2 weeks in May has improved. ALLERGIES: No known drug allergies. CURRENT MEDICATIONS: Wellbutrin 100 mg, [place] 10/325 one p.o. t.i.d., tizanidine 4 mg b.i.d., hydrochlorothiazide 25 mg, Linzess 290 mcg, Relafen 750 mg b.i.d., Topamax 100 mg b.i.d., Desyrel 50 mg at bedtime, Elavil 25 mg at bedtime. PAIN CLINIC ASSESSMENT AND PQRS: 1. The patient does have some pain and discomfort in her legs. Does complain of some increased swelling. Has had left knee pain and has had a knee replacement. Has some pain in her left hip. She is not being treated for rheumatoid arthritis. 2. Height 5 feet 5 inches, weight 313 pounds, BMI 52.6. 3. Blood pressure 163/117, second blood pressure 175/106, heart rate 72, respiratory rate 18, room air saturation is 94%, temperature 98.1. 4. Pain score 9/10. The patient feels she is about 30% improved with her current medication regimen. 5. Blood thinner. The patient is not on a blood thinning medication. 6. Fall history: The patient has not fallen in the last 3 months. 7. Opioids greater than 6 weeks. The [facility]. 8. Risk assessment tool, low for opioid use. 9. Functional assessment tool, it has been reviewed. 10. Recreational drug use: The patient denies. 11. Alcohol: [place] [address] PAIN MANAGEMENT CONSULTATION Name: TORRIE MOY Room: [facility]#: [id number] Admission: 06/26/19 Attend Phys: Bernice Moy MD Discharge: Date of : 63 Report #: [id number] PHYSICAL EXAMINATION: GENERAL: The patient is a well-developed, well-nourished black female, appears her stated age. She is obese. Affect is appropriate. Complains of migraine headache type symptomatology at this juncture. She is accompanied by her . HEENT: Normocephalic, atraumatic. Extraocular eye muscles intact. Sclerae nonicteric. Mucous membranes are moist. NECK: Without adenopathy. LUNGS: Generally clear to auscultation. EXTREMITIES: Upper extremity muscle strength judged to be 5-/5 for the major muscle groups in the upper extremity. MUSCULOSKELETAL: Lower 5-/5 for the major muscle groups in the lower extremity. The patient does have some swelling in the lower extremity. Difficult to assess secondary to the patient's body habitus. The patient without significant scoliosis, kyphosis or lordosis. Does have a well-healed scar in the left knee. IMPRESSION: 1. History of migraine headaches. 2. History of chronic back pain, status post back surgery, failed back syndrome. 3. Right and left knee pain with osteoarthritis. 4. Left knee pain status post arthroplasty. 5. Fibromyalgia history. 6. Obesity. RECOMMENDATIONS: We discussed treatment options with the patient. At this juncture, we will continue with her medications. A script for the [place] medication 10 mg 2 tablets p.o. b.i.d. have been rewritten. The patient has some swelling in the lower extremities. We have recommended that she keep her feet elevated as when she is lying down. Possible use of a diuretic in the future might be advantageous. We will recommend that the patient stay as active as possible. Notes increased pain with walking, sitting, changes in the weather, which has turned from warm to colder. Blood pressure was somewhat elevated today. We recommend that the patient contact her primary care in this regard. She does complain of migraine headaches. Possible use of medication like propranolol to help with the migraine headaches because of its ability to cross the blood brain barrier might be helpful with the migraine headaches as well as with her hypertension. She will check with her primary in that regard. Use of 10 mg b.i.d. initially might be helpful. We could increase these as she is able to tolerate it with her blood pressure as well as hopefully left knee and the number of migraine headaches that she suffers. We would like to thank you for letting us participate in her care. We hope she continues to improve. A script for her medications of amitriptyline 25 mg 2 tablets at bedtime, Voltaren gel to the upper extremities, Cymbalta 60 [place] [address] PAIN MANAGEMENT CONSULTATION Name: TORRIE MOY Room: [facility]#: [id number] Admission: 06/26/19 Attend Phys: Bernice Moy MD Discharge: Date of : 63 Report #: [id number] and hydrocodone 10 mg 1 or 2 tablets p.o. t.i.d. have been written. We discussed the use of naloxone with the patient and her . Should an emergency occur, that item will be available. We would like to thank you for letting us participate in her care. We hope she continues to improve. By: [id number] Moy MD /DEMAR
== END ==
LOC: M.PC 09:59
DX: M17.0 Bilateral primary osteoarthritis of knee (principal); M54.9 Dorsalgia, unspecified; G89.29 Other chronic pain; G43.909 Migraine, unspecified, not intractable, without status migrainosus; E66.9 Obesity, unspecified; Z79.891 Long term (current) use of opiate analgesic; Z79.899 Other long term (current) drug therapy

== ENCOUNTER → 2019-07-24 | Outpatient (CLI) | payer OTHER ==
--- NOTE | ~2019-07-24 | PAINCON ---
[address] [address] PAIN MANAGEMENT CONSULTATION Name: TORRIE MOY Room: [facility]#: [id number] Admission: 07/24/19 Attend Phys: Bernice Moy MD Discharge: Date of : 63 Report #: [id number] THIS REPORT FOR: //name// cc: Armin Shha MD, Anthony MD THIS REPORT FOR: //name// CC: Armin Moy DATE OF SERVICE: 07/24/2019 CHIEF COMPLAINT: Low-back pain. HISTORY: The patient is a 54-year-old female, who has been followed in the pain clinic. As you recall, she continues to have pain and discomfort in the low back area. She has had surgery. Rates her pain score today as an 8/10. Occasionally, she has problems with migraine headaches. She has had some history of elevated blood pressures. States that she is going to follow up with her primary in that regard. She has tried to increase her activity. She has started walking and exercising again. ALLERGIES: No known drug allergies. CURRENT MEDICATIONS: Wellbutrin 100 mg; [place] 10 mg/325 mg two tablets p.o. t.i.d., total of 6 tablets daily; Cymbalta 60 mg one p.o. b.i.d.; amitriptyline 25 mg at bedtime, total of 50 mg; tizanidine 4 mg p.o. b.i.d.; hydrochlorothiazide 25 mg; Linzess 290 mcg; Relafen 750 mg b.i.d.; Topamax 100 mg b.i.d.; Desyrel 50 mg at bedtime; and Elavil 25 mg at bedtime. PAIN CLINIC ASSESSMENT AND PQRS: 1. The patient does have pain and discomfort in her legs. She continues to have some increased swelling. Has had a left knee replacement and has some soreness in her left hip. She is not being treated for rheumatoid arthritis. 2. Height 5 feet 5 inches, weight 315 pounds, BMI is 25.2. 3. Vital Signs: Blood pressure is 172/91, heart rate of 69, respiratory rate 18, room air saturation is 97%. 4. Temperature 98.3. 5. Pain intensity 01/27. 6. Fall history: The patient has not fallen in the last 3 months. 7. Blood thinner. The patient is not on a blood thinning medication. 8. Hypertension. The patient is being treated for hypertension. 9. Recreational drugs: The patient denies. 10. Alcohol. The patient denies use of alcoholic drugs. 11. Functional assessment tool, moderate [place] [address] PAIN MANAGEMENT CONSULTATION Name: TORRIE MOY Room: [facility]#: [id number] Admission: 07/24/19 Attend Phys: Bernice Moy MD Discharge: Date of : 63 Report #: [id number] PHYSICAL EXAMINATION: GENERAL: The patient is a well-developed, well-nourished black female. Appears her stated age. She is alert and oriented x3. Her affect is appropriate. Speech is fluent. HEENT: Normocephalic, atraumatic. Extraocular eye muscles intact. The patient is accompanied by her . The patient's morphology is obese. HEENT: Normocephalic, atraumatic. Extraocular eye muscles intact. Sclerae nonicteric. Mucous membranes are moist. NECK: Without adenopathy or JVD. LUNGS: Clear to auscultation. EXTREMITIES: Upper extremity muscle strength judged to be 5-/5 for the major muscle groups in the upper extremity. MUSCULOSKELETAL: In the lower extremity, 5-/5 for the major muscle groups in the lower extremity. The patient does complain of pain in the left knee and the left hip area. The patient has noted some swelling in her lower extremities. The patient without significant scoliosis, kyphosis, or lordosis. Well-healed scar in the area of her left knee. IMPRESSION: 1. History of migraine headaches. 2. History of chronic back pain, status post surgery with failed back syndrome. 3. Right and left knee pain with osteoarthritis. 4. Left knee status post arthroplasty. 5. Fibromyalgia history. 6. Obesity. RECOMMENDATIONS: We discussed treatment options with the patient. At this juncture, we will continue with her medications. We had explained that opioid medications can become less effective over time. The patient is aware of this. We have discussed the need to decrease her morphine equivalents in an effort to have her follow up in the pain clinic on an every other month basis. At this point, she still feels that her medications are at the level that is required and we will give some strong consideration to decreasing her opioid use. She has been provided with a script for her medication of Cymbalta 60 mg 1 p.o. b.i.d. She will also continue with tizanidine 4 mg 1 p.o. b.i.d. Hydrocodone 10/325 two tablets p.o. t.i.d., total of 180 tablets as well as amitriptyline 25 mg 2 tablets at bedtime. The patient will call us if she has any concerns. Overall, she is in good mood. [place] has won the [employer]. We would like to thank you for letting us participate in her care. We hope she continues to improve. She will call us if she has any concerns. By: [id number]. Jd Moy MD /nt
== END ==
LOC: M.PC 05:14
DX: M17.0 Bilateral primary osteoarthritis of knee (principal); M54.5 Low back pain; E66.9 Obesity, unspecified; Z96.652 Presence of left artificial knee joint; M79.7 Fibromyalgia; Z79.891 Long term (current) use of opiate analgesic

== ENCOUNTER → 2019-08-21 | Outpatient (CLI) | payer OTHER ==
--- NOTE | 2019-09-04 09:57 | PAINCON ---
[address] [address] PAIN MANAGEMENT CONSULTATION Name: TORRIE MOY Room: [facility]#: [id number] Admission: 08/21/19 Attend Phys: Bernice Moy MD Discharge: Date of : 63 Report #: [id number] THIS REPORT FOR: //name// cc: Armin Shah MD, Anthony MD THIS REPORT FOR: //name// CC: Armin Moy DATE OF SERVICE: 08/21/2019 CHIEF COMPLAINT: Continued low back pain. HISTORY: The patient is a 54-year-old female who has been followed in the pain clinic. As you recall, she suffers from back pain. She has had back surgery. In spite of back surgery, she continues to have some lumbar radicular pain. She fell. She did not require medical attention. This was about 2 years ago. She was going upstairs. She has noticed that the weather outside is improved somewhat. She is able to increase her level of activity with less discomfort. She has experienced worsening of her knee pain and back pain when the cold weather sets in. She rates her pain today as a 7/10. Feels that she is about 35% improved with her current medical regimen. She would like to continue with her medications and has returned today for renewal. ALLERGIES: No known drug allergies. CURRENT MEDICATIONS: Wellbutrin 100 mg; [place] 10/325 two tablets p.o. t.i.d., total of 6 tablets daily; Cymbalta 60 mg one p.o. b.i.d.; amitriptyline 25 mg at bedtime, total of 50 mg; tizanidine 4 mg b.i.d.; hydrochlorothiazide 25 mg; Linzess 290 mcg; Relafen 750 mg b.i.d.; Topamax 100 mg b.i.d.; Desyrel 50 mg at bedtime; Elavil 25 mg at bedtime. PAIN CLINIC ASSESSMENT AND PQRS: 1. The patient does have some pain and discomfort in her legs. She continues to have pain and swelling. She has had pain in her left knee, even though she has had a left knee replacement. Notes some soreness in her left hip. She is not being treated for rheumatoid arthritis. 2. Height 5 feet 5 inches, weight 310 pounds. BMI is to be calculated. 3. Vital Signs: Blood pressure 157/86, heart rate 83, respiratory rate 16, room air saturation 97, and temperature 98.6. 4. Pain score ____/10. 5. Fall history: The patient did fall about 2 weeks ago. She was walking up stairs. She did not seek medical attention. 6. Blood thinner. The patient is not on [place] [address] PAIN MANAGEMENT CONSULTATION Name: TORRIE MOY Room: [facility]#: [id number] Admission: 08/21/19 Attend Phys: Bernice Moy MD Discharge: Date of : 63 Report #: [id number] 7. Hypertension. The patient is being treated for hypertension. 8. Opioids 6 weeks: The patient received medication from [facility]. 9. Opioids use, moderate. 10. Alcohol. The patient denies use of alcoholic beverages. 11. Tobacco: The patient denies use of tobacco. 12. Alcohol. The patient denies frequent use of alcoholic beverages. PHYSICAL EXAMINATION: GENERAL: The patient is a well-developed, well-nourished black female, appears her stated age. She is alert and oriented x 3. Her affect is appropriate. Speech is fluent. The patient is accompanied by her . She is somewhat obese. HEENT: Normocephalic, atraumatic. Extraocular eye muscles intact. Sclerae are nonicteric. Mucous membranes are moist. NECK: Without adenopathy or JVD. LUNGS: Clear to auscultation. EXTREMITIES: Upper extremity muscle strength judged to be 5/5 for the major muscle groups in the upper extremity. MUSCULOSKELETAL: Lower extremity 5-/5 for the major muscle groups in the lower extremity. The patient has complained of pain in her knees, hands as well as the left hip. Continues to note some swelling in the lower extremity. MUSCULOSKELETAL: Without significant scoliosis, kyphosis, or lordosis. She has a well-healed scar in the lower portion of her back as well as her left knee. IMPRESSION: 1. History of migraine headaches. 2. History of chronic back pain, status post surgery with failed back syndrome. 3. Right and left knee pain with osteoarthritis. 4. Left knee status post arthroplasty. 5. Fibromyalgia. 6. Obesity. RECOMMENDATIONS: We discussed treatment options with the patient. Risks and benefits of opioid medications were again discussed. The patient is aware that opioid medications are not as effective as they were in the past. She is aware that opioid medications can become less effective because of development of tolerance. She has taken her medication as prescribed. She is not having any complications with their use. She is able to think clearly. She is not showing signs of addiction. She has taken the medications as prescribed. She keeps her medications in a guarded area. She will call us if she has any concerns. Script for her medications has been written. She will continue with the hydrocodone 10/325 one p.o. t.i.d., 180 tablets. She will also continue with the Cymbalta 60 mg 1 p.o. b.i.d. The patient will also continue with amitriptyline 25 mg 2 tablets at bedtime. She will call us if [place] [address] PAIN MANAGEMENT CONSULTATION Name: TORRIE MOY Room: [facility]#: [id number] Admission: 08/21/19 Attend Phys: Bernice Moy MD Discharge: Date of : 63 Report #: [id number] We would like to thank you for letting us participate in her care. We hope she continues to improve. <ELECTRONICALLY SIGNED> By: Bernice Moy MD 09/04/19 0957 [id number]. Jd Moy MD /nt
== END ==
LOC: M.PC 04:19
DX: M54.5 Low back pain (principal); E66.9 Obesity, unspecified; M79.7 Fibromyalgia; I10 Essential (primary) hypertension; F11.20 Opioid dependence, uncomplicated; M17.0 Bilateral primary osteoarthritis of knee; Z96.652 Presence of left artificial knee joint; Z86.69 Personal history of other diseases of the nervous system and sense organs; Z79.899 Other long term (current) drug therapy

== ENCOUNTER → 2019-09-18 | Outpatient (CLI) | payer OTHER ==
--- NOTE | 2019-09-19 08:26 | PAINCON ---
[address] [address] PAIN MANAGEMENT CONSULTATION Name: TORRIE MOY Room: [facility]#: [id number] Admission: 09/18/19 Attend Phys: Bernice Moy MD Discharge: Date of : 63 Report #: [id number] THIS REPORT FOR: //name// cc: Armin Shah MD, Anthony MD ~ THIS REPORT FOR: //name// CC: Armin Moy DATE OF SERVICE: 09/18/2019 CHIEF COMPLAINT: Continued low back pain and leg pain. HISTORY: The patient is a 54-year-old female. As you may recall, she suffers from back pain. She has had back surgery. She continues to have back pain in spite of the surgery. She rates her pain today as a 7.5/10. She also has knee pain and discomfort. She has had a knee replacement. She has noticed that because of the weather changes, her pain has increased. She is having pain that radiates down into her left leg. She feels that the hydrocodone medication is helpful. She feels that it is about 35-37% beneficial. The walking, standing and sitting are problematic. She has returned today for renewal of her medication. She is somewhat nervous in regards to the Covid-19 virus. She is wearing protective gloves. She is also sheltering at home as prescribed. She has returned today for renewal of her medication. She feels that the Voltaren gel is helpful as well. ALLERGIES: No known drug allergies. CURRENT MEDICATIONS: Wellbutrin 100 mg, [place] 10/325 two tablets 1 p.o. t.i.d., total of 6 tablets daily, Cymbalta 60 mg p.o. b.i.d., amitriptyline 25 mg at bedtime, total of 50 mg; tizanidine 4 mg b.i.d., hydrochlorothiazide 25 mg, Linzess 290 mcg, Relafen 750 mg b.i.d., Topamax 100 mg b.i.d., Desyrel 50 mg at bedtime, and Elavil 25 mg at bedtime. PAIN CLINIC ASSESSMENT AND PQRS: 1. The patient does have some pain and discomfort involving her legs. Has pain and swelling in the legs. Has pain in her left knee. She has had a left knee replacement. Notes some soreness in her left hip. She is not being treated for rheumatoid arthritis. 2. Height 5 feet 5 inches, weight 312 pounds, BMI 51. 3. Vital signs: Blood pressure 179/88, heart rate 65, respiratory rate 18, room air saturation 97%, and temperature 98.6. 4. Pain intensity is 7.5/10. 5. Fall history: The patient has not fallen in the last 3 weeks. 6. Blood thinner. The patient is not on [place] [address] PAIN MANAGEMENT CONSULTATION Name: TORRIE MOY Room: [facility]#: [id number] Admission: 09/18/19 Attend Phys: Bernice Moy MD Discharge: Date of : 63 Report #: [id number] 7. Hypertension. The patient is being treated for hypertension. 8. Opioids greater than 6 weeks. The patient receives her medication from the Pain Clinic. 9. Opioids. The patient uses opioids as prescribed. 10. Alcohol: The patient denies use of alcoholic beverages. 11. Tobacco: The patient denies use of tobacco. PHYSICAL EXAMINATION: GENERAL: The patient is a well-developed, well-nourished, somewhat obese black female, appears her stated age. She is alert and oriented x 3. She is unaccompanied. HEENT: Mucous membranes are moist. The patient is wearing glasses. NECK: Without JVD or adenopathy. LUNGS: Generally clear to auscultation. EXTREMITIES: Upper extremity muscle strength judged to be 5/5 for the major muscle groups in the upper extremity. MUSCULOSKELETAL: The patient without significant scoliosis, kyphosis or lordosis. Lower extremity muscle strength judged to be 5-/5 for the major muscle groups in the lower extremity. The patient complains of some swelling in the lower extremity. The patient has a well-healed scar in the lower portion of her back. She has a well-healed scar in her left knee. IMPRESSION: 1. History of migraine headaches. 2. History of back pain, status post surgery with failed back syndrome pain. 3. Right and left knee pains with osteoarthritis. 4. Left knee pain status post arthroplasty. 5. Fibromyalgia. 6. Obesity. RECOMMENDATIONS: We discussed treatment options with the patient. At this juncture, we will continue with her medications. She finds that they are helpful. She would like to continue their use. The risk and benefits of opioid medications again have been discussed with the patient. We have talked about the limits of the medication. Some patients have developed dependence. She has not shown any signs of dependency. [facility]. We explained to the patient the problems with overdosing. A number of patients in the past years have found opioid medications helpful, but have used them in combination with other medications and have overdosed. She feels that these medications are helpful. She has no intention of overdosing. She has been given a Narcan spray to use at home should she develop problems with respiratory insufficiency or other members use her medications. [facility] [address] [place] [address] PAIN MANAGEMENT CONSULTATION Name: NANDOTORRIE Mccoy Room: [facility]#: [id number] Admission: 09/18/19 Attend Phys: Bernice Moy MD Discharge: Date of : 63 Report #: [id number] We would like to thank you for letting us participate in her care. We hope she continues to improve. <ELECTRONICALLY SIGNED> By: Bernice Moy MD 09/19/19 0826 [id number]. Jd Moy MD /nt
== END ==
LOC: M.PC 04:36
DX: M54.5 Low back pain (principal); M79.605 Pain in left leg; E66.9 Obesity, unspecified; M79.7 Fibromyalgia; M25.562 Pain in left knee; M25.561 Pain in right knee; Z87.39 Personal history of other diseases of the musculoskeletal system and connective tissue; I10 Essential (primary) hypertension; F11.20 Opioid dependence, uncomplicated; Z82.0 Family history of epilepsy and other diseases of the nervous system; Z79.899 Other long term (current) drug therapy

== ENCOUNTER → 2019-11-13 | Outpatient (CLI) | payer OTHER ==
--- NOTE | 2019-11-19 09:22 | PAINCON ---
[facility] [address] [place] [address] PAIN MANAGEMENT CONSULTATION Name: TORRIE MOY Room: [facility]#: [id number] Admission: 11/13/19 Attend Phys: Bernice Moy MD Discharge: Date of : 63 Report #: [id number] THIS REPORT FOR: //name// cc: Armin Shah MD, Anthony MD ~ THIS REPORT FOR: //name// CC: Armin Moy DATE OF SERVICE: 11/13/2019 CHIEF COMPLAINT: Back, knee and leg pain. HISTORY: The patient is a 54-year-old female who has been followed in the pain clinic because of chronic pain. She continues to have pain and discomfort. She has had back surgery. In spite of that, her pain persists. She rates her pain today as 7-8/10. She notes that there is increased stiffness due to the change in weather. Notes that walking, sitting, standing, climbing stairs, bending all exacerbate her discomfort. She feels her medications are beneficial. She feels that the hydrocodone and tizanidine medications are helpful. She would like to have the medications renewed. ALLERGIES: No known drug allergies. CURRENT MEDICATIONS: Wellbutrin 100 mg, [place] 10/325 two tablets t.i.d. for a total of 6 tablets daily, Cymbalta 60 mg p.o. b.i.d., Elavil 25 mg at bedtime total of 50 mg; tizanidine 4 mg b.i.d., hydrochlorothiazide 25 mg, Linzess 290 mcg, Relafen 750 mg b.i.d., Topamax 100 mg b.i.d., Desyrel 50 mg at bedtime, Elavil 25 mg at bedtime. PAIN CLINIC ASSESSMENT AND PQRS: 1. The patient has some discomfort involving her legs. Has pain in her knees. She has some swelling in legs. She is not being treated for rheumatoid arthritis. 2. Height 5 feet 5 inches, weight 311 pounds, BMI is 52.1. 3. Vital Signs: Blood pressure 154/104, respiratory rate 16, room air saturation is 82%, temperature 95. 4. Temperature which is 96.4. 5. Pain intensity 7-01/27. 6. Fall history: The patient has not fallen in the last 3 months. 7. Blood thinner. The patient is not on a blood thinning medication. 8. Hypertension. The patient is being treated for hypertension. 9. Opioids greater than 6 weeks. The patient received medication from the pain clinic. 10. Risk assessment [place] [address] PAIN MANAGEMENT CONSULTATION Name: TORRIE MOY Room: [facility]#: [id number] Admission: 11/13/19 Attend Phys: Bernice Moy MD Discharge: Date of : 63 Report #: [id number] 11. Alcohol. The patient denies frequent use of alcoholic beverages. 12. Tobacco: The patient denies. PHYSICAL EXAMINATION: GENERAL: The patient is a well-developed, well-nourished, somewhat obese black female. Appears her stated age. She is alert and oriented x 3. Her affect is appropriate. Speech is fluent. HEENT: Normocephalic, atraumatic. Extraocular eye muscles intact. Sclerae nonicteric. Mucous membranes are moist. The patient is wearing glasses. NECK: Without adenopathy or JVD. LUNGS: Generally clear. EXTREMITIES: Upper extremity muscle strength judged to be 5/5 for the major muscle groups in the upper extremity. MUSCULOSKELETAL: The patient without significant scoliosis, kyphosis or lordosis. Lower extremity muscle strength judged to be 5-/5 for the major muscle groups in the lower extremity. The patient complains of some swelling in the lower extremities. The patient has a well-healed scar in the lower portion of her back. Well-healed scar on her left knee. IMPRESSION: 1. History of migraine headaches. 2. History of back pain, status post surgery with failed back syndrome. 3. Right and left knee pain with osteoarthritis. 4. Left knee pain status post arthroplasty. 5. Fibromyalgia. 6. Obesity. RECOMMENDATIONS: We discussed treatment options with the patient. Risks and benefits of opioid medications were again reviewed. The patient is aware that opioid medications can become less effective as time goes on because of development of tolerance. The patient is aware that opioid medications can cause some patients to developed addiction. She has not shown any signs of addiction. She is aware that a number of people over the past year have as a result of opioid overdoses. She has taken the medication as prescribed. The patient has been given a script for Narcan to have at home should the need arise. We would like to thank you for letting us participate in her care. A script for her medications have been written. She will continue with the amitriptyline 25 mg 2 tablets at bedtime for 50 mg. She will continue with the Voltaren gel 1% to apply to the affected areas q.i.d. The patient will also continue with the Cymbalta 60 mg 2 tablets b.i.d. She will continue with hydrocodone 10/325 two p.o. t.i.d. The patient will use the tizanidine for muscle [place] [address] PAIN MANAGEMENT CONSULTATION Name: TORRIE MOY Room: [facility]#: [id number] Admission: 11/13/19 Attend Phys: Bernice Moy MD Discharge: Date of : 63 Report #: [id number] We would like to thank you for letting us participate in her care. We hope she continues to improve. <ELECTRONICALLY SIGNED> By: Bernice Moy MD 11/19/19 0922 [id number]. Jd Moy MD /PMT
== END ==
LOC: M.PC 04:19
DX: M17.0 Bilateral primary osteoarthritis of knee (principal); M54.5 Low back pain; E66.9 Obesity, unspecified; M79.7 Fibromyalgia; F11.20 Opioid dependence, uncomplicated; Z86.69 Personal history of other diseases of the nervous system and sense organs; Z96.652 Presence of left artificial knee joint; Z79.899 Other long term (current) drug therapy

== ENCOUNTER → 2019-12-11 | Outpatient (CLI) | payer OTHER ==
--- NOTE | 2019-12-27 15:59 | PAINCON ---
[address] [address] PAIN MANAGEMENT CONSULTATION Name: TORRIE MOY Room: [facility]#: [id number] Admission: 12/11/19 Attend Phys: Bernice Moy MD Discharge: Date of : 63 Report #: [id number] THIS REPORT FOR: //name// cc: Armin Shah MD, Anthony MD ~ THIS REPORT FOR: //name// CC: Armin Moy DATE OF SERVICE: 12/11/2019 CHIEF COMPLAINT: Back and knee pain and down into the legs. HISTORY: The patient is a 54-year-old female who has been followed in the pain clinic because of chronic pain. As you may recall, she has had back surgery. She continues to have pain, which is problematic and interferes with activities of daily living. She has pain involving her knees. She feels that her pain is little worse since we last visit. The right knee has been increasingly painful. She has a left shoulder, which has been more problematic. She has been experiencing some numbness in her left leg. Overall, she rates her pain as an 8.5/10. Standing, climbing stairs, sitting, bending, walking and lifting as well as activities of daily living, continue to be more problematic. ALLERGIES: No known drug allergies. CURRENT MEDICATIONS: Wellbutrin 100 mg, [place] 10/325 two tablets t.i.d. for a total of 6 tablets daily, Cymbalta 60 mg b.i.d., Elavil 25 mg at bedtime, total of 50 mg, tizanidine 4 mg b.i.d., hydrochlorothiazide 25 mg, Linzess 290 mcg, Relafen 750 mg b.i.d., Topamax 100 mg b.i.d., Desyrel 50 mg at bedtime, Elavil 25 mg at bedtime. PAIN CLINIC ASSESSMENT/PQRS: 1. The patient has some discomfort involving her legs. Has pain in her knees. She has some swelling in her legs. She is not being treated for rheumatoid arthritis. 2. Height 5 feet 5 inches, weight 315 pounds. 3. Vital Signs: Blood pressure 135/88, heart rate 64, respiratory rate 16, room air saturation 94%, temperature 98.5. 4. Pain intensity 8.5/10. 5. Fall history: The patient has not fallen in the last 3 months. 6. Blood thinner. The patient is not on a blood thinning medication. 7. Hypertension. The patient is being treated for hypertension. 8. Opioids greater than 6 weeks. The patient receives her medication from the pain clinic. 9. Risk assessment tool, low [place] [address] PAIN MANAGEMENT CONSULTATION Name: TORRIE MOY Room: [facility]#: [id number] Admission: 12/11/19 Attend Phys: Bernice Moy MD Discharge: Date of : 63 Report #: [id number] 10. Functional assessment tool. This has been reviewed. 11. Alcohol. The patient denies frequent use of alcoholic beverages. 12. Tobacco: The patient denies use of tobacco. PHYSICAL EXAMINATION: GENERAL: The patient is a well-developed, well-nourished black female. She is somewhat obese. Her affect is appropriate. Speech is fluent. HEENT: Normocephalic, atraumatic. Extraocular eye muscles intact. Sclerae nonicteric. Mucous membranes are moist. NECK: Without adenopathy. LUNGS: Generally clear. EXTREMITIES: Upper extremity muscle strength judged to be 5/5 for the major muscle groups in the upper extremity. MUSCULOSKELETAL: The patient without significant scoliosis, kyphosis or lordosis. Has well-healed scars in the lower portion of her back. Has pain and discomfort in the right knee. She has a well-healed scar on the left knee. IMPRESSION: 1. History of migraine headaches. 2. History of back pain, status post surgery with failed back syndrome. 3. Right and left knee pain with osteoarthritis. 4. Left knee pain status post arthroplasty. 5. Fibromyalgia. 6. Obesity. RECOMMENDATIONS: We discussed treatment options with the patient. Risks and benefits of opioid use have been reviewed. The patient feels her medications are helpful. They enable her to do activities, she would not be able to without their use. States that she has taken the medication as prescribed. Keeps it in a guarded area. The patient has been provided with a script for Narcan should the need arise for its use. Her medications have been written. She will continue with amitriptyline 25 mg at bedtime to taking 2 pills. A script for Voltaren gel 1% to be applied 4 times daily to the upper extremity, Cymbalta 60 mg b.i.d. have been rewritten. The patient will also continue with hydrocodone 10/325 two tablets 3 times daily, total 180 tablets have been provided. The patient use Zanaflex 4 mg b.i.d. for muscle spasms. We would like to thank you for letting us to participate in her care. We hope she continues to improve. <ELECTRONICALLY SIGNED> By: Bernice Moy MD 12/27/19 1559 [id number]. MD EUGENIA Garcia
== END ==
LOC: M.PC 04:36
PROVIDERS: ATTEND Anesthesiology Pain Medicine
DX: M17.0 Bilateral primary osteoarthritis of knee (principal); M79.7 Fibromyalgia; M54.9 Dorsalgia, unspecified; E66.9 Obesity, unspecified; Z86.69 Personal history of other diseases of the nervous system and sense organs; Z87.39 Personal history of other diseases of the musculoskeletal system and connective tissue; Z79.899 Other long term (current) drug therapy

== ENCOUNTER → 2020-01-22 | Outpatient (CLI) | payer OTHER ==
--- NOTE | 2020-02-05 08:25 | PAINCON ---
[address] [address] PAIN MANAGEMENT CONSULTATION Name: TORRIE MOY Room: [facility]#: [id number] Admission: 01/22/20 Attend Phys: Bernice Moy MD Discharge: Date of : 63 Report #: [id number] THIS REPORT FOR: //name// cc: Armin Shah MD, Anthony MD THIS REPORT FOR: //name// CC: Armin Moy DATE OF SERVICE: 01/22/2020 CHIEF COMPLAINT: Back and leg pain. HISTORY: The patient is a 54-year-old female who has been followed in the Pain Clinic. She has had pain in her back. She has undergone back surgery. She continues to have pain, which radiates down into her legs. She also has bilateral knee pain. She has had knee surgery. Finds that her pain continues to be quite problematic. She rates her pain overall as an 8/10. She describes the pain as constant. She notes that the pain is worse with walking, sitting, standing, climbing stairs, bending and lifting as well as engaging in activities of daily living. She has returned today with the hopes of having her medications renewed. She has taken the medications as prescribed. ALLERGIES: No known drug allergies. CURRENT MEDICATIONS: Wellbutrin 100 mg, [place] 10/325 two tablets t.i.d. for a total of 6 tablets daily, Cymbalta 60 mg b.i.d., Elavil 25 mg at bedtime, total of 50 mg; tizanidine 4 mg b.i.d., hydrochlorothiazide 25 mg, Linzess 290 mcg, Relafen 750 mg b.i.d., Topamax 100 mg b.i.d., Desyrel 50 mg at bedtime. PAIN CLINIC ASSESSMENT/PQRS: 1. The patient does have some discomfort involving her legs. She has some back pain. Notes swelling in her legs. She is not being treated for rheumatoid arthritis. 2. Height 5 feet 5 inches, weight 314 pounds, BMI is 51. 3. Blood pressure 189/96, heart rate 69, respiratory rate 16, room air saturation 96%, temperature 98.4. 4. Pain intensity, 01/27. 5. Fall history: The patient has not fallen since we saw her last. 6. Blood thinner. The patient is not on a blood thinning medication. 7. Hypertension. The patient is being treated for hypertension. 8. Opioids greater than 6 weeks. The patient receives medication from the Pain Clinic. 9. Risk assessment tool, [place] [address] PAIN MANAGEMENT CONSULTATION Name: TORRIE MOY Room: [facility]#: [id number] Admission: 01/22/20 Attend Phys: Bernice Moy MD Discharge: Date of : 63 Report #: [id number] 10. Functional assessment tool reviewed. 11. Alcohol. The patient denies use of alcoholic beverages. 12. Tobacco: The patient denies use of tobacco. PHYSICAL EXAMINATION: GENERAL: The patient is a well-developed, well-nourished black female, appears her stated age. She is obese. She is alert and oriented x 3. Her affect is appropriate. Speech is fluent. HEENT: Normocephalic, atraumatic. Extraocular eye muscles intact. Sclerae nonicteric. Mucous membranes are moist. The patient is wearing a mask. NECK: Without adenopathy or JVD. LUNGS: Generally clear. ABDOMEN: Protuberant. EXTREMITIES: Upper extremity muscle strength is judged to be 5/5 for the major muscle groups in the upper extremity. The patient has pain and discomfort in the lower portion of her back. She is without significant scoliosis, kyphosis or lordosis. Has well-healed scar in the lower portion of the back. The patient complains of right knee pain. She has a well-healed scar on the left knee. IMPRESSION: 1. History of migraine headaches. 2. History of back pain, status post surgery with failed back syndrome. 3. Right and left knee pain with osteoarthritis. 4. Left knee replacement, status post arthroplasty. 5. Fibromyalgia. 6. Obesity. RECOMMENDATIONS: We discussed treatment options with the patient. At this juncture, we will continue with her medications. She finds the medications continue to be helpful. The patient will continue with her medications. She finds that they enable her to engage in activities, she would not be able to do without them. She keeps her medications in a guarded area. She is aware that opioid medications can become less effective as time goes on. She will continue with Elavil, amitriptyline 25 mg 2 tablets at bedtime for 50 mg total. The patient will continue with Voltaren gel applied 4 times to the upper extremity for pain relief. Cymbalta 60 mg 1 p.o. b.i.d. has been rewritten. The patient will also continue with hydrocodone 10 mg tablets 2 tablets 3 times daily. A script for 180 tablets has been written. The patient will continue with Zanaflex to help with muscle spasms. She will call us if she has any concerns. [address] [place] [address] PAIN MANAGEMENT CONSULTATION Name: DB MOYNEO Mccoy Room: [facility]#: [id number] Admission: 01/22/20 Attend Phys: Bernice Moy MD Discharge: Date of : 63 Report #: [id number] We would like to thank you for letting us participate in her care. We hope she continues to improve. <ELECTRONICALLY SIGNED> By: Bernice Moy MD 02/05/20 0825 [id number]. Jd Moy MD /nt
== END ==
LOC: M.PC 02:17
PROVIDERS: ATTEND Anesthesiology Pain Medicine
DX: M17.0 Bilateral primary osteoarthritis of knee (principal); M96.1 Postlaminectomy syndrome, not elsewhere classified; M79.10 Myalgia, unspecified site; E66.9 Obesity, unspecified; F11.20 Opioid dependence, uncomplicated; Z79.899 Other long term (current) drug therapy; Z86.69 Personal history of other diseases of the nervous system and sense organs; Z96.652 Presence of left artificial knee joint

== ENCOUNTER → 2020-02-19 | Outpatient (CLI) | payer OTHER ==
[~2020-02-19] MED LIST changes: +LISINOPRIL-HCT1 EACH PO
--- NOTE | 2020-03-13 08:38 | PAINCON ---
[address] [address] PAIN MANAGEMENT CONSULTATION Name: TORRIE MOY Room: [facility]#: [id number] Admission: 02/19/20 Attend Phys: Bernice Moy MD Discharge: Date of : 63 Report #: [id number] THIS REPORT FOR: //name// cc: Armin Shah MD, Anthony MD ~ THIS REPORT FOR: //name// CC: Armin Moy DATE OF SERVICE: 02/19/2020 CHIEF COMPLAINT: Here for medication renewal. HISTORY: The patient is a 54-year-old female who has been followed in the Pain Clinic. As you may recall, she has a history of back surgery. She continues to have chronic back pain. She finds that her medications are helpful. She is having some pain with pain radiating to the left hip. She has noticed an increase in pain and discomfort in this area. Overall, she rates her pain as a 7/10. She notes pain with activity, sitting, walking, standing, and bending. She continues to note benefit from her muscle relaxants as well as her pain medications. States she is taking the medication as prescribed. ALLERGIES: No known drug allergies. CURRENT MEDICATIONS: Wellbutrin 100 mg; [place] 10 mg 2 tablets t.i.d., total of 6 tablets daily; Cymbalta 60 mg b.i.d.; Elavil 25 mg at bedtime, total of 50 mg; tizanidine 4 mg b.i.d.; hydrochlorothiazide 25 mg; Linzess 290 mcg; Relafen 750 mg b.i.d.; Topamax 100 mg b.i.d.; Desyrel 50 mg at bedtime. PAIN CLINIC ASSESSMENT AND PQRS: 1. The patient has some discomfort involving her legs. She has pain in her back. She has some pain and discomfort involving her left hip. Still has a perception of some swelling in her legs. She is not being treated for rheumatoid arthritis. 2. Height 5 feet 5 inches, weight 312 pounds, BMI is 51.9. 3. Vital signs: Blood pressure 128/85, pulse 80, respiratory rate 18, room air saturation 97%, temperature 97.8. 4. Pain intensity: 12/27. 5. Fall history: The patient has not fallen since we saw her last. 6. Blood thinner: The patient is not on a blood thinning medication. 7. Hypertension: The patient is being treated for hypertension. 8. Opioids greater than 6 weeks: The patient receives medications from the Pain Clinic. 9. Risk assessment tool: Moderate for opioid use. 10. Recreational drug use: [place] [address] PAIN MANAGEMENT CONSULTATION Name: TORRIE MOY Room: [facility]#: [id number] Admission: 02/19/20 Attend Phys: Bernice Moy MD Discharge: Date of : 63 Report #: [id number] 11. Alcohol: The patient denies use of alcoholic beverages. 12. Tobacco: The patient denies use of alcohol. PHYSICAL EXAMINATION: GENERAL: The patient is a well-developed, well-nourished, black female. Appears her stated age. She is alert and oriented x 3. Her affect is appropriate. Speech is fluent. HEENT: Normocephalic, atraumatic. Extraocular eye muscles intact. Sclerae nonicteric. Mucous membranes are moist. NECK: Without adenopathy or JVD. The patient is wearing a face covering. NECK: Without adenopathy. LUNGS: Generally clear. ABDOMEN: Protuberant. MUSCULOSKELETAL: Upper extremity muscle strength is judged to be 5/5 for the major muscle groups. The patient has pain and discomfort in her lower back with pain radiating down into the lower back and left hip. The patient is without significant scoliosis, kyphosis or lordosis. She has a well-healed scar in the lower portion of her back. She complains of some knee pain. IMPRESSION: 1. History of migraine headaches. 2. 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 3. Right leg pain with osteoarthritis. 4. Left knee replacement, status post arthroplasty. 5. Fibromyalgia. 6. Obesity. RECOMMENDATIONS: We discussed treatment options with the patient. The patient will continue with her medications. She feels that they continue to be helpful. She finds that engaging in activities would be more problematic without them. She has continued to stay active. She would like to have her medications renewed. We discussed the risks and benefits of opioid medications. She is aware that they can become less effective as time goes on because of development of tolerance. A script for her medications have been renewed. She will continue with amitriptyline 25 mg 2 tablets at bedtime. She will continue with Voltaren gel 1% to the upper extremities, Cymbalta 60 mg 1 p.o. b.i.d., hydrocodone 10/325 two tablets t.i.d. for a total of 180 tablets for a month, tizanidine 4 mg b.i.d., Narcan has been provided for the patient in the past, Linzess 290 mcg, vitamin D 50,000 units, hormone replacement, B12 1000 mcg intramuscular monthly, Topamax 100 mg, eletriptan p.r.[place] [address] PAIN MANAGEMENT CONSULTATION Name: TORRIE MOY Room: [facility]#: [id number] Admission: 02/19/20 Attend Phys: Bernice Moy MD Discharge: Date of : 63 Report #: [id number] We would like to thank you for letting us participate in her care. We hope she continues to improve. <ELECTRONICALLY SIGNED> By: Bernice Moy MD 03/13/20 0838 1153 [id number]. Jd Moy MD /nt
== END ==
LOC: M.PC 09:39
PROVIDERS: ATTEND Anesthesiology Pain Medicine
DX: M54.9 Dorsalgia, unspecified (principal); G89.29 Other chronic pain; G43.909 Migraine, unspecified, not intractable, without status migrainosus; M96.1 Postlaminectomy syndrome, not elsewhere classified; E66.9 Obesity, unspecified; M79.7 Fibromyalgia; M19.071 Primary osteoarthritis, right ankle and foot; Z96.652 Presence of left artificial knee joint

== ENCOUNTER → 2020-03-20 | Outpatient (CLI) | payer OTHER ==
--- NOTE | 2020-04-01 14:22 | PAINCON ---
[address] [address] PAIN MANAGEMENT CONSULTATION Name: TORRIE MOY Room: [facility]#: [id number] Admission: 03/20/20 Attend Phys: Bernice Moy MD Discharge: Date of : 63 Report #: [id number] THIS REPORT FOR: //name// cc: Armin Shah MD, Anthony MD ~ THIS REPORT FOR: //name// CC: Armin Moy DATE OF SERVICE: 03/20/2020 CHIEF COMPLAINT: Low back pain and pain down into both legs. HISTORY: The patient is a 54-year-old female. She has been followed in the pain clinic. She has had back surgery. Suffers from failed back syndrome. Continues to have pain in the lower portion of her back. Has some knee pain and discomfort as well. She has had a knee replacement. Notes that activities such as walking, sitting, standing can be problematic. Lifting is problematic as well. She feels that her medications are helpful. Overall, her pain is a 7-8/10. She has returned today and feels that the medication is beneficial and enables her to do activities she would not be able to without these medications. ALLERGIES: No known drug allergies. CURRENT MEDICATIONS: Wellbutrin 100 mg, [place] 10 mg 2 tablets t.i.d., total of 6 tablets daily, Cymbalta 60 mg b.i.d., Elavil 25 mg at bedtime, total of 50 mg; tizanidine 4 mg b.i.d., hydrochlorothiazide 25 mg, Linzess 290 mcg, Relafen 750 mg b.i.d., Topamax 100 mg, Desyrel 15 mg. PAIN CLINIC ASSESSMENT AND PQRS: 1. The patient has some discomfort involving her legs. Has pain in her back. Has pain involving her left hip. Has swelling in her lower extremities. The patient is not being treated for rheumatoid arthritis. 2. Height 5 feet 5 inches, weight 308 pounds, BMI is 50. 3. Vital Signs: Blood pressure 144/82, heart rate 76, respiratory rate 16, room air saturation is 98%. 4. Temperature 98.6. 5. Pain intensity -01/27. 6. Fall history: The patient has not fallen since we saw her last. 7. Blood thinner. The patient is not on a blood thinning medication. 8. Hypertension. The patient is being treated for hypertension. 9. Opioids greater than 6 weeks. The patient receives medication from the pain clinic. 10. Risk assessment tool, moderate for opioid use. 11. Recreational drug [place] [id number] PAIN MANAGEMENT CONSULTATION Name: TORRIE MOY Room: [facility]#: [id number] Admission: 03/20/20 Attend Phys: Bernice Moy MD Discharge: Date of : 63 Report #: [id number] 12. Alcohol. The patient denies use of alcoholic beverages. 13. Tobacco: The patient denies use of alcohol. PHYSICAL EXAMINATION: GENERAL: The patient is a well-developed, well-nourished black female, appears her stated age. She is alert and oriented x 3. She is accompanied by her . HEENT: Normocephalic, atraumatic. Extraocular eye muscles intact. The patient is wearing a facial covering. NECK: Without adenopathy or JVD. LUNGS: Generally clear somewhat distant. ABDOMEN: Protuberant. MUSCULOSKELETAL: Upper extremity muscle strength judged to be 5/5 for the major muscle groups in the upper extremity. The patient has pain in the lower portion of her back. Has pain that radiates down the back involving her hips. Also, complains of pain in her knees. She is without significant scoliosis, kyphosis or lordosis. Well-healed scar in the lower portion of the back. IMPRESSION: 1. History of migraines. 2. History of chronic back pain, status post surgery with failed back syndrome symptomatology. 3. Right leg pain with osteoarthritis. 4. Left knee replacement, status post arthroplasty. 5. Fibromyalgia. 6. Obesity. RECOMMENDATIONS: We discussed treatment options with the patient. At this juncture, we will continue with her medications. She feels the medications continue to be helpful. She is aware that they can become less effective as time goes on. She is aware that certain patients have become addicted to the medications and have as a result of overdose. She keeps her medications in a guarded area. A script for her medications have been renewed. She will continue with the medications as prescribed. She will call us if she has any concerns. A script for amitriptyline 25 mg 2 tablets at bedtime, Voltaren gel 1% apply to the upper extremities as directed, Cymbalta 60 mg b.i.d., hydrocodone 10/325 one p.o. 2 tablets 3 times daily for a total of 180 tablets for month have been provided. The patient will also take tizanidine for muscle spasms. She has been provided naloxone spray should the need arise. We would like to thank you for letting us participate in her care. We hope she continues to improve. <ELECTRONICALLY SIGNED> By: Bernice Moy MD 04/01/20 1422 [id number] [id number]. MD EUGENIA Garcia
== END ==
LOC: M.PC 09:30
PROVIDERS: ATTEND Anesthesiology Pain Medicine
DX: G89.29 Other chronic pain (principal); G43.909 Migraine, unspecified, not intractable, without status migrainosus; M19.90 Unspecified osteoarthritis, unspecified site; E66.9 Obesity, unspecified; M79.7 Fibromyalgia; Z88.8 Allergy status to other drugs, medicaments and biological substances; Z79.891 Long term (current) use of opiate analgesic; Z96.652 Presence of left artificial knee joint; Z98.890 Other specified postprocedural states; Z68.43 Body mass index [BMI] 50.0-59.9, adult; Z79.899 Other long term (current) drug therapy

== ENCOUNTER → 2020-04-17 | Outpatient (CLI) | payer OTHER ==
--- NOTE | 2020-04-22 14:36 | PAINCON ---
[address] [address] PAIN MANAGEMENT CONSULTATION Name: TORRIE MOY Room: [facility]#: [id number] Admission: 04/17/20 Attend Phys: Bernice Moy MD Discharge: Date of : 63 Report #: [id number] THIS REPORT FOR: //name// cc: Armin Shah MD, Anthony MD ~ CC: Armin Moy DATE OF SERVICE: 04/17/2020 CHIEF COMPLAINT: "I fell a couple of weeks ago, had some swelling in my left knee." HISTORY: The patient is a 54-year-old female who has been followed in the Pain Clinic because of chronic pain. As you recall, she has had back surgery. She suffers from failed back syndrome with continued back pain. She has pain, which involves both legs. She states she a couple of weeks ago. She injured her left knee. Noticed some increased swelling. She still has difficulty with walking, sitting, standing, climbing stairs, bending and lifting. She feels that her medications are helpful. She rates her pain as an 8/10 at this juncture. She has returned today with the hopes of having her medications renewed. ALLERGIES: No known drug allergies. CURRENT MEDICATIONS: Wellbutrin 100 mg, [place] 10 mg 2 tablets t.i.d., total of 6 tablets daily, Cymbalta 60 mg b.i.d., Elavil 25 mg at bedtime, total of 50 mg; tizanidine 4 mg b.i.d., hydrochlorothiazide 25 mg, Linzess 290 mcg, Relafen 750 mg b.i.d., Topamax 100 mg, Desyrel 15 mg. PAIN CLINIC ASSESSMENT/PQRS: 1. The patient has some discomfort involving her legs. Has pain in her back. Has pain involving her left hip. Has some swelling in the lower extremities. Has pain, which is increased in the left knee after a fall, which occurred a few weeks ago. 2. The patient is not being treated for rheumatoid arthritis. 3. Height 5 feet 5 inches, weight 308 pounds, BMI is 51. 4. Vital signs: Blood pressure 141/95, heart rate 88, respiratory rate 16, room air saturation is 98%. 5. Temperature, 97.0. 6. Pain score, 8/10. 7. Fall history: The patient has fallen about 2 weeks ago. She did not need medical attention. 8. Blood thinner. The patient is not on a blood thinning medication. 9. Hypertension. The patient is being treated for hypertension. 10. Opioids greater than 6 weeks. The [place] [address] PAIN MANAGEMENT CONSULTATION Name: TORRIE MOY Room: [facility]#: [id number] Admission: 04/17/20 Attend Phys: Bernice Moy MD Discharge: Date of : 63 Report #: [id number] Pain Clinic. 11. Risk assessment tool, moderate for opioid use. 12. Recreational drug use: The patient denies. 13. Alcohol: The patient denies. 14. Tobacco: The patient denies use of alcoholic beverages. PHYSICAL EXAMINATION: GENERAL: The patient is a well-developed, well-nourished black female, appears her stated age. She is alert and oriented x 3. Her affect is appropriate. Speech is fluent. She is accompanied by her . She has a facial covering in place. MUSCULOSKELETAL: She complains of pain and discomfort in the low back area. She has pain that radiates down into the legs bilaterally. Has some increased swelling and discomfort in her left knee, which has been replaced. The patient is without significant scoliosis, kyphosis or lordosis. Well-healed scar in the back. HEART: Regular rate. ABDOMEN: Protuberant. IMPRESSION: 1. History of migraines. 2. History of chronic pain, status post surgery with failed back syndrome symptomatology. 3. Right leg pain with osteoarthritis. 4. Increased left knee pain after a fall, status post arthroplasty. 5. Fibromyalgia. 6. Obesity. RECOMMENDATIONS: We discussed treatment options with the patient. Risks and benefits of her medications again were discussed. She feels that these medications are helpful. They enable her to engage in activities, she would not be able to without their use. She is using her medications. She feels that they are helpful. She is able to think clearly. She does not have any problems with mentation. A script for her medications has been rewritten. She will continue with amitriptyline 25 mg 2 tablets at bedtime. She will also use Voltaren gel to the affected area q.i.d. The patient will continue with Cymbalta 60 mg, and hydrocodone 10/325 two tablets t.i.d. for a total of 6 tablets daily. The patient finds that tizanidine as a muscle relaxant is helpful, we will continue with that medication. The patient has been provided with Narcan nasal spray. [address] [address] PAIN MANAGEMENT CONSULTATION Name: DB MOYIE Darius Room: [facility]#: [id number] Admission: 04/17/20 Attend Phys: Bernice Moy MD Discharge: Date of : 63 Report #: [id number] We would like to thank you for letting us participate in her care. We hope she continues to improve. <ELECTRONICALLY SIGNED> By: Bernice Moy MD 04/22/20 1436 0830 [id number] Moy MD /nt
== END ==
LOC: M.PC 09:40
PROVIDERS: ATTEND Anesthesiology Pain Medicine
DX: M54.5 Low back pain (principal); M25.461 Effusion, right knee; M25.462 Effusion, left knee

== ENCOUNTER → 2020-05-20 | Outpatient (CLI) | payer OTHER | LOC: M.PC 09:30 | PROVIDERS: ATTEND Anesthesiology Pain Medicine | DX: G89.29 Other chronic pain (principal); M54.5 Low back pain; G43.909 Migraine, unspecified, not intractable, without status migrainosus; M25.562 Pain in left knee; M79.604 Pain in right leg; M19.09 Primary osteoarthritis, other specified site; M79.7 Fibromyalgia; E66.9 Obesity, unspecified; Z96.652 Presence of left artificial knee joint; Z98.890 Other specified postprocedural states; Z79.891 Long term (current) use of opiate analgesic; Z79.899 Other long term (current) drug therapy ==

== ENCOUNTER → 2020-09-23 | Outpatient (CLI) | payer OTHER ==
[~2020-09-23] MED LIST changes: +AMITRIPTYLINE H75 M1 PO; +NEURONTIN 400400 M1 PO
== END ==
LOC: M.PC 05:53
PROVIDERS: ATTEND Anesthesiology Pain Medicine
DX: G57.10 Meralgia paresthetica, unspecified lower limb (principal); M17.11 Unilateral primary osteoarthritis, right knee; M79.605 Pain in left leg; M79.604 Pain in right leg; M79.7 Fibromyalgia; E66.9 Obesity, unspecified

== ENCOUNTER → 2020-11-13 | Outpatient (CLI) | payer OTHER | LOC: M.PC 11:00 | PROVIDERS: ATTEND Anesthesiology Pain Medicine | DX: G89.29 Other chronic pain (principal); M79.604 Pain in right leg; M19.09 Primary osteoarthritis, other specified site; M25.562 Pain in left knee; M79.7 Fibromyalgia; E66.9 Obesity, unspecified ==

== ENCOUNTER → 2020-12-09 | Outpatient (CLI) | payer OTHER ==
[~2020-12-09] MED LIST changes: +NEURONTIN600 MG PO; +VOLTAREN ARTHRI20 GM TOP
== END ==
LOC: M.PC 06:12
PROVIDERS: ATTEND Anesthesiology Pain Medicine
DX: G57.10 Meralgia paresthetica, unspecified lower limb (principal); M19.09 Primary osteoarthritis, other specified site; M79.89 Other specified soft tissue disorders; M25.562 Pain in left knee; M79.7 Fibromyalgia; E66.9 Obesity, unspecified; Z96.652 Presence of left artificial knee joint; Z87.898 Personal history of other specified conditions; Z98.890 Other specified postprocedural states

== ENCOUNTER → 2021-01-08 | Outpatient (CLI) | payer OTHER | LOC: M.PC 05:51 | PROVIDERS: ATTEND Anesthesiology Pain Medicine | DX: G57.10 Meralgia paresthetica, unspecified lower limb (principal); G43.909 Migraine, unspecified, not intractable, without status migrainosus; M19.90 Unspecified osteoarthritis, unspecified site; M79.7 Fibromyalgia; E66.9 Obesity, unspecified; Z79.899 Other long term (current) drug therapy; Z79.891 Long term (current) use of opiate analgesic ==

== ENCOUNTER → 2021-02-10 | Outpatient (CLI) | payer OTHER ==
[~2021-02-10] MED LIST changes: +NEURONTIN800 MG PO
== END ==
LOC: M.PC 09:43
PROVIDERS: ATTEND Anesthesiology Pain Medicine
DX: G57.10 Meralgia paresthetica, unspecified lower limb (principal); M79.604 Pain in right leg; M25.562 Pain in left knee; M79.7 Fibromyalgia; E66.9 Obesity, unspecified; Z96.652 Presence of left artificial knee joint

== ENCOUNTER → 2021-03-10 | Outpatient (CLI) | payer OTHER | LOC: M.PC 09:41 | PROVIDERS: ATTEND Anesthesiology Pain Medicine | DX: G89.29 Other chronic pain (principal); G57.10 Meralgia paresthetica, unspecified lower limb; M19.09 Primary osteoarthritis, other specified site; M79.7 Fibromyalgia; E66.9 Obesity, unspecified; Z96.652 Presence of left artificial knee joint; Z79.899 Other long term (current) drug therapy; Z88.8 Allergy status to other drugs, medicaments and biological substances ==

== ENCOUNTER → 2021-04-07 | Outpatient (CLI) | payer OTHER | LOC: M.PC 10:20 | PROVIDERS: ATTEND Anesthesiology Pain Medicine | DX: G57.10 Meralgia paresthetica, unspecified lower limb (principal); G43.909 Migraine, unspecified, not intractable, without status migrainosus; M19.09 Primary osteoarthritis, other specified site; M79.7 Fibromyalgia; E66.9 Obesity, unspecified; Z96.652 Presence of left artificial knee joint; Z88.8 Allergy status to other drugs, medicaments and biological substances; Z79.899 Other long term (current) drug therapy ==

== ENCOUNTER → 2021-06-04 | Outpatient (CLI) | payer OTHER | LOC: M.PC 05:45 | PROVIDERS: ATTEND Anesthesiology Pain Medicine | DX: M79.7 Fibromyalgia (principal); G57.10 Meralgia paresthetica, unspecified lower limb; G89.29 Other chronic pain; M79.604 Pain in right leg; M19.90 Unspecified osteoarthritis, unspecified site; M25.562 Pain in left knee; E66.9 Obesity, unspecified; Z88.8 Allergy status to other drugs, medicaments and biological substances; Z79.899 Other long term (current) drug therapy ==

== ENCOUNTER → 2021-07-02 | Outpatient (CLI) | payer OTHER | LOC: M.PC 05:32 | PROVIDERS: ATTEND Anesthesiology Pain Medicine | DX: G89.29 Other chronic pain (principal); G43.909 Migraine, unspecified, not intractable, without status migrainosus; G57.10 Meralgia paresthetica, unspecified lower limb; M79.604 Pain in right leg; M79.7 Fibromyalgia; E66.9 Obesity, unspecified; M25.562 Pain in left knee; Z96.652 Presence of left artificial knee joint; Z79.899 Other long term (current) drug therapy ==